=== PATIENT | female | born 1955 | race Caucasian/White ===

== ENCOUNTER → 2016-12-13 | Outpatient (CLI) | payer BC ==
--- NOTE | 2016-12-13 11:40 | USB ---
Reason for exam: additional evaluation requested from abnormal screening. History: Patient is postmenopausal. Family history of breast cancer in aunt. Benign US biopsy breast VAD RT of the right breast, May 10, 2016. Took estrogen for 10 years. Physical Findings: Nurse did not find any significant physical abnormalities on exam. US Breast RT Right breast ultrasound includes all four quadrants, the retroareolar region and axilla. Finding demonstrate a 0.3 x 0.3 x 0.2cm oval, cystic lesion at 4 o'clock, and a 0.3 x 0.5 x 0.2cm oval, cystic lesion at 7 o'clock. These results were verbally communicated with the patient and result sheet given to the patient on 12/13/16. ASSESSMENT: Benign, BI-RAD 2 RECOMMENDATION: Routine screening mammogram of both breasts in 6 months. Manage patient on a clinical basis. Back on schedule.
== END | disposition home or self-care (01) ==
LOC: RADUSWWP 09:31
PROVIDERS: ATTEND Family Medicine
DX: R92.8 Other abnormal and inconclusive findings on diagnostic imaging of breast (principal)

== ENCOUNTER → 2017-08-01 | Outpatient (CLI) | payer BC ==
--- NOTE | 2017-08-03 11:28 | MM ---
Reason for exam: screening (asymptomatic). Last mammogram was performed 1 year and 3 months ago. History: Patient is postmenopausal. Family history of breast cancer in aunt. Benign US biopsy breast VAD RT of the right breast, May 10, 2016. Took estrogen for 10 years. Physical Findings: A clinical breast exam by your physician is recommended on an annual basis and results should be correlated with mammographic findings. MG Screening Mammo w CAD Bilateral CC and MLO view(s) were taken. Prior study comparison: May 10, 2016, right breast MG diagnostic mammo RT wo CAD. January 26, 2016, bilateral MG 3d diag mammo w/cad [facility]. March 05, 2015, bilateral MG screening mammo w CAD. December 16, 2012, bilateral digital screening mammo w/CAD. Previous mammotome biopsy in the right breast. There is chronic nodularity in the right breast. No significant changes when compared with prior studies. ASSESSMENT: Negative, BI-RAD 1 RECOMMENDATION: Routine screening mammogram of both breasts in 1 year.
== END | disposition home or self-care (01) ==
LOC: RADMAMWWP 09:16
PROVIDERS: ATTEND Family Medicine
DX: Z12.31 Encounter for screening mammogram for malignant neoplasm of breast (principal)

== ENCOUNTER → 2017-12-08 | Outpatient (CLI) | payer BC ==
[2017-12-08 10:19] LABS: ALT 38 U/L (9-52); AST 29 U/L (14-36); Albumin 4.4 g/dL (3.5-5.0); Alkaline Phosphatase 66 U/L (38-126); Anion Gap 13 mmol/L; Blood Urea Nitrogen 15 mg/dL (7-17); Calcium 9.3 mg/dL (8.4-10.2); Carbon Dioxide 28 mmol/L (22-30); Chloride 104 mmol/L (98-107); Cholesterol 148 mg/dL (<200); Glucose 89 mg/dL (74-99); HDL Cholesterol 48 mg/dL (40-60); LDL Cholesterol,Calculated 79 mg/dL (0-99); Potassium 4.8 mmol/L (3.5-5.1); Sodium 145 mmol/L (137-145); Total Bilirubin 0.5 mg/dL (0.2-1.3); Total Protein 6.8 g/dL (6.3-8.2); Triglycerides 104 mg/dL (<150)
== END | disposition home or self-care (01) ==
LOC: LABWHC1 09:19
PROVIDERS: ATTEND Internal Medicine Clinical Cardiac Electrophysiology
DX: I25.10 Atherosclerotic heart disease of native coronary artery without angina pectoris (principal); I21.9 Acute myocardial infarction, unspecified; E78.01 Familial hypercholesterolemia
CPT/HCPCS: 36415; 80053; 80061

== ENCOUNTER 2018-01-04 00:22 | Observation (INO) | payer BC ==
[2018-01-04 01:17] LABS: Basophils % (A) 0 %; Eosinophils # (A) 0.1 k/uL (0-0.7); Eosinophils % (A) 2 %; HCT 42.3 % (34.0-46.0); HGB 14.3 gm/dL (11.4-16.0); Lymphocytes # (A) 1.6 k/uL (1.0-4.8); Lymphocytes % (A) 33 %; MCH 30.5 pg (25.0-35.0); MCHC 33.8 g/dL (31.0-37.0); MCV 90.1 fL (80.0-100.0); Mean Platelet Volume 6.4; Monocytes # (A) 0.3 k/uL (0-1.0); Monocytes % (A) 7 %; Neutrophils # (A) 2.8 k/uL (1.3-7.7); Neutrophils % (A) 57 %; Platelet Count 225 k/uL (150-450); RBC 4.69 m/uL (3.80-5.40); RDW 13.1 % (11.5-15.5)
[2018-01-04 01:20] LABS: ALT 31 U/L (9-52); AST 34 U/L (14-36); Albumin 4.2 g/dL (3.5-5.0); Alkaline Phosphatase 53 U/L (38-126); Amylase 89 U/L (30-110); Anion Gap 13 mmol/L; Blood Urea Nitrogen 19 mg/dL (7-17); Calcium 9.4 mg/dL (8.4-10.2); Carbon Dioxide 26 mmol/L (22-30); Chloride 105 mmol/L (98-107); Glucose 88 mg/dL (74-99); Lipase 76 U/L (23-300); Magnesium 2.4 mg/dL (1.6-2.3); Potassium 4.2 mmol/L (3.5-5.1); Sodium 144 mmol/L (137-145); Total Bilirubin 0.4 mg/dL (0.2-1.3); Total Protein 6.8 g/dL (6.3-8.2)
[2018-01-04 01:28] LABS: Creatine Kinase 59 U/L (30-135)
[2018-01-04 01:38] LABS: D-Dimer <0.17 mg/L FEU (<0.60); Partial Thromboplastin Time 24.9 sec (22.0-30.0); Prothrombin Time 10.2 sec (9.0-12.0)
[2018-01-04 01:40] LABS: Creatine Kinase MB 0.5 ng/mL (0.0-2.4); Troponin I <0.012 ng/mL (0.000-0.034)
--- NOTE | 2018-01-04 01:46 | XR ---
EXAMINATION TYPE: XR chest 2V DATE OF EXAM: 01/04/2018 COMPARISON: NONE HISTORY: Chest pain TECHNIQUE: Frontal and lateral views of the chest are obtained. FINDINGS: Heart and mediastinum are normal. There are small linear density in the right midlung. The other lung lucia are clear. There is no heart failure. There are chest leads. Bony thorax is intact . IMPRESSION: Subsegmental atelectasis in the right midlung. Normal heart.
[2018-01-04] MEDS ORDERED: ACETAMINOPHEN TAB 500 MG TAB PO STA (02:55)
--- NOTE | 2018-01-04 03:14 | ED ---
Chest Pain HPI - General Chief Complaint: Chest Pain Stated Complaint: Chest pain Time Seen by Provider: 01/04/18 00:33 Source: patient, family, EMS Mode of arrival: EMS Limitations: no limitations - History of Present Illness Initial Comments: 62 years old female comes in with the dizziness started about 11 PM she is nauseous now she is complaining about the chest pain then goes towards her back blood pressure was quite elevated at 1. 194/83 she said she is a candidate for defibrillator insertion. She said she had a chest pain and now chest pain is gone no shortness of breath no pleuritic component to the chest pain does not hurt worse with a deep breaths, dizziness is resolved as well she does have a history of heart disease she had a stent in place now she had a cardiac cath in September and she is on Plavix right now. Denies any headaches no neck stiffness chest pain has resolved now no abdominal pain no frequency urgency dysuria - Related Data Home Medications Medication Instructions Recorded Confirmed Aspirin 81 mg PO DAILY 07/10/16 07/10/16 Levothyroxine Sodium [Synthroid] 100 mcg PO DAILY 07/10/16 07/10/16 Losartan [Cozaar] 50 mg PO HS 07/10/16 07/10/16 Metoprolol Succinate [Toprol XL] 25 mg PO DAILY 07/10/16 07/10/16 Multivit with Calcium,Iron,Min 1 each PO DAILY 07/10/16 07/10/16 [Women's Daily Multivitamin] Omeprazole [PriLOSEC] 20 mg PO AC-BRKFST 07/10/16 07/10/16 amLODIPine [Norvasc] 10 mg PO HS 07/10/16 07/10/16 Previous Rx's Medication Instructions Recorded HYDROcodone/APAP 5-325MG [Che[place] 1 tab PO Q6HR PRN #18 tab 07/11/16 5-325] Allergies Allergy/AdvReac Type Severity Reaction Status Date / Time Sulfa (Sulfonamide Allergy Rash/Hives Verified 01/04/18 00:40 Antibiotics) Review of Systems ROS Statement: Those systems with pertinent positive or pertinent negative responses have been documented in the HPI. ROS Other: All systems not noted in ROS Statement are negative. EKG Findings - EKG Comments: EKG Findings:: EKG is normal sinus rhythm ventricular rate is 80 VA interval is 150 QRS duration is 86 QT/QTc is 4/475 review of this EKG reveals T-wave inversion in V2 V3 V4 V5 and V6 unfortunately have no old EKG to compare with. Considering acute EKG changes Past Medical History Past Medical History: GERD/Reflux, Hyperlipidemia, Hypertension, Osteoarthritis (OA), Thyroid Disorder History of Any Multi-Drug Resistant Organisms: None Reported Past Surgical History: Section, Hysterectomy, Tubal Ligation Additional Past Surgical History / Comment(s): attempted laparoscopic seven. in 2015 @[facility] Past Anesthesia/Blood Transfusion Reactions: Previous Problems w/ Anesthesia Additional Past Anesthesia/Blood Transfusion Reaction / Comment(s): some kind of complication w/attempted lap. seven, not sure if was anethesia or not-BP plummeted after start of procedure-was told could be respiratory although saw Pina who didn't think so, never had any anesthesia issues w/any other surg in past Past Psychological History: No Psychological Hx Reported Smoking Status: Former smoker Past Alcohol Use History: None Reported Past Drug Use History: None Reported - Past Family History Mother Family Medical History: Cancer Father Family Medical History: Cancer General Exam - General Exam Comments Initial Comments: General: The patient is awake and alert, in no distress, and does not appear acutely ill. Skin: Skin is warm and dry and no rashes or lesions are noted. Eye: Pupils are equal, round and reactive to light, extra-ocular movements are intact; there is normal conjunctiva bilaterally. Ears, nose, mouth and throat: There are moist mucous membranes and no oral lesions. Neck: The neck is supple, there is no tenderness or JVD. Cardiovascular: There is a regular rate and rhythm. No murmur, rub or gallop is appreciated. Respiratory: To auscultation bilateral, no wheezing no rhonchi no distress respiratory sanders noticed Gastrointestinal: Soft, non-distended, non-tender abdomen without masses or organomegaly noted. There is no rebound or guarding present. Bowel sounds are unremarkable. Back: There is no tenderness to palpation in the midline. There is no obvious deformity. Musculoskeletal: Normal ROM, no tenderness, There is no pedal edema. There is no calf tenderness or swelling. No cords were appreciated. Neurological: CN II-XII intact, Cranial nerves III through XII are intact. There are no obvious motor or sensory deficits. Coordination appears grossly intact. Speech is normal. Psychiatric: Cooperative, appropriate mood & affect, normal judgment. Limitations: no limitations Course Vital Signs 01/04/18 01/04/18 01/04/18 00:34 00:52 00:53 Temperature 97.7 F Pulse Rate 69 71 Pulse Rate [ 79 Right] Respiratory 17 16 Rate Blood Pressure 194/83 194/83 O2 Sat by Pulse 97 95 Oximetry 01/04/18 01/04/18 01/04/18 01:12 01:59 02:52 Temperature 97.4 F L Pulse Rate 66 66 76 Pulse Rate [ Right] Respiratory 18 16 18 Rate Blood Pressure 179/79 179/79 173/76 O2 Sat by Pulse 97 98 97 Oximetry Plan reassessment noticed the d-dimer is normal troponin is unremarkable chest x -ray is normal so is the troponin EKG has some changes in about 5 leads there are symmetrical T-wave inversions considering that she is currently hospitalized she'll be admitted to Disposition Clinical Impression: Chest pain Disposition: ADMITTED IP TO THIS HOSP Condition: Good Referrals: Xochilt Coker MD [Primary Care Provider] - 1-2 days
[2018-01-04] MEDS ORDERED: MORPHINE SULFATE 2 MG/ML SYRINGE IV PRN (03:18)
[2018-01-04] MEDS ORDERED: HYDROcodone/APAP 5-325MG 1 EACH TAB PO PRN (03:21)
[2018-01-04 04:03] VITALS: BMI 23.0
[2018-01-04] MEDS ORDERED: NITROGLYCERIN OINT 1 INCH/GM PACKET TOPICAL SCH (06:00)
[2018-01-04] MEDS ORDERED: LEVOTHYROXINE 100 MCG TAB PO SCH (06:30)
--- NOTE | 2018-01-04 07:17 | P.CRDCN ---
History of Present Illness Consult reason: chest pain History of present illness: 62-year-old female with history of hypertension who has seen in the office Presenting with dizziness while in bed, no loss of consciousness Later chest discomfort which went through to her back Nausea EKG shows inverted T waves in the precordial leads Chest x-ray showed normal cardiac silhouette and mediastinum D-dimer is normal First cardiac enzyme is normal Heart sounds are normal She is hypertensive She is on Coreg and lisinopril Medication list in the EMR record is inaccurate Suggest 3 serial cardiac enzymes Repeat ECG Records from the office including stress test report If normal consider CT of the chest with contrast to evaluate the aorta given her history of hypertension and her presenting symptoms Spoke to the nurse and started her on carvedilol and lisinopril 20 mg by mouth daily See full dictation by nurse practitioner Past Medical History Past Medical History: GERD/Reflux, Hyperlipidemia, Hypertension, Osteoarthritis (OA), Thyroid Disorder History of Any Multi-Drug Resistant Organisms: None Reported Past Surgical History: Section, Heart Catheterization With Stent, Hysterectomy, Tubal Ligation Additional Past Surgical History / Comment(s): attempted laparoscopic seven. in 2015 @[facility], heart cath with stent sep 10 Past Anesthesia/Blood Transfusion Reactions: Previous Problems w/ Anesthesia Additional Past Anesthesia/Blood Transfusion Reaction / Comment(s): some kind of complication w/attempted lap. seven, not sure if was anethesia or not-BP plummeted after start of procedure-was told could be respiratory although saw Pina who didn't think so, never had any anesthesia issues w/any other surg in past Date of Last Stent Placement:: september 10, 2017 Past Psychological History: No Psychological Hx Reported Smoking Status: Former smoker Past Alcohol Use History: None Reported Additional Past Alcohol Use History / Comment(s): smoked for 5-6 yrs in teens & early 20's Past Drug Use History: None Reported - Past Family History Mother Family Medical History: Cancer Father Family Medical History: Cancer Medications and Allergies Home Medications Medication Instructions Recorded Confirmed Type Aspirin 81 mg PO DAILY 07/10/16 01/04/18 History Levothyroxine Sodium [Synthroid] 75 mcg PO DAILY 07/10/16 01/04/18 History Losartan [Cozaar] 50 mg PO HS 07/10/16 07/10/16 History Metoprolol Succinate [Toprol XL] 25 mg PO DAILY 07/10/16 07/10/16 History Multivit with Calcium,Iron,Min 1 each PO DAILY 07/10/16 07/10/16 History [Women's Daily Multivitamin] Omeprazole [PriLOSEC] 20 mg PO AC-BRKFST 07/10/16 01/04/18 History amLODIPine [Norvasc] 10 mg PO HS 07/10/16 07/10/16 History HYDROcodone/APAP 5-325MG [Pione[place] 1 tab PO Q6HR PRN #18 tab 07/11/16 Rx 5-325] Atorvastatin [Lipitor] 01/04/18 History Atorvastatin [Lipitor] 10 mg PO HS 01/04/18 01/04/18 History Carvedilol [Carvedilol] 25 mg PO BID 01/04/18 01/04/18 History Clopidogrel [Plavix] 75 mg PO DAILY 01/04/18 01/04/18 History Ezetimibe [Zetia] 10 mg PO DAILY 01/04/18 01/04/18 History Lisinopril [Zestril] 20 mg PO BID 01/04/18 01/04/18 History Allergies Allergy/AdvReac Type Severity Reaction Status Date / Time Sulfa (Sulfonamide Allergy Rash/Hives Verified 01/04/18 00:40 Antibiotics) Physical Exam Vitals: Vital Signs Temp Pulse Pulse Resp BP BP Pulse Ox 01/04/18 04:00 61 16 179/89 100 01/04/18 03:28 98.0 F 58 L 18 178/85 98 01/04/18 02:52 76 18 173/76 97 01/04/18 01:59 97.4 F L 66 16 179/79 98 01/04/18 01:12 66 18 179/79 97 01/04/18 00:53 79 01/04/18 00:52 71 16 194/83 95 01/04/18 00:34 97.7 F 69 17 194/83 97 Intake and Output 01/03/18 01/04/18 01/04/18 22:59 06:59 14:59 Intake Total 100 Balance 100 Intake: Oral 100 Other: Voiding Method Toilet # Voids 2 Weight 53.524 kg Results 01/04/18 00:40 01/04/18 00:40 Cardiac Enzymes 01/04/18 01/04/18 Range/Units 00:40 00:40 AST 34 (14-36) U/L CK-MB (CK-2) 0.5 (0.0-2.4) ng/mL Troponin I <0.012 (0.000-0.034) ng/mL Coagulation 01/04/18 Range/Units 00:40 PT 10.2 (9.0-12.0) sec APTT 24.9 (22.0-30.0) sec CBC 01/04/18 Range/Units 00:40 WBC 5.0 (3.8-10.6) k/uL RBC 4.69 (3.80-5.40) m/uL Hgb 14.3 (11.4-16.0) gm/dL Hct 42.3 (34.0-46.0) % Plt Count 225 (150-450) k/uL Comprehensive Metabolic Panel 01/04/18 Range/Units 00:40 Sodium 144 (137-145) mmol/L Potassium 4.2 (3.5-5.1) mmol/L Chloride 105 (98-107) mmol/L Carbon Dioxide 26 (22-30) mmol/L BUN 19 H (7-17) mg/dL Creatinine 0.80 (0.52-1.04) mg/dL Glucose 88 (74-99) mg/dL Calcium 9.4 (8.4-10.2) mg/dL AST 34 (14-36) U/L ALT 31 (9-52) U/L Alkaline Phosphatase 53 (38-126) U/L Total Protein 6.8 (6.3-8.2) g/dL Albumin 4.2 (3.5-5.0) g/dL Current Medications Generic Name Dose Route Start Last Admin Trade Name Freq PRN Reason Stop Dose Admin Hydrocodone Bitart/Acetaminophen 1 each 01/04/18 03:21 Pioneer 5-325 PO Q6HR PRN Pain Aspirin 325 mg 01/05/18 09:00 Aspirin PO DAILY [facility] Levothyroxine Sodium 75 mcg 01/04/18 06:30 Synthroid PO 0630 [facility] Metoprolol Succinate 25 mg 01/04/18 09:00 Toprol Xl PO DAILY [facility] Morphine Sulfate 4 mg 01/04/18 03:18 Morphine Sulfate (Inj) IV Q5M PRN Chest Pain Multivitamins 1 each 01/04/18 09:00 Theragran PO DAILY DANNIELLE Pantoprazole Sodium 40 mg 01/04/18 07:30 Protonix PO AC-BRKFST DANNIELLE Intake and Output 01/03/18 01/04/18 01/04/18 22:59 06:59 14:59 Intake Total 100 Balance 100 Intake: Oral 100 Other: Voiding Method Toilet # Voids 2 Weight 53.524 kg 01/04/18 00:40 01/04/18 00:40
[2018-01-04] MEDS: CARVEDILOL 12.5 MG TAB PO SCH ×2 (08:39→17:36)
[2018-01-04] MEDS: LEVOTHYROXINE 75 MCG TAB PO SCH (08:39)
[2018-01-04] MEDS: LISINOPRIL 20 MG TAB PO SCH (08:39)
[2018-01-04] MEDS ORDERED: MULTIVITAMINS, THERA 1 EACH TAB PO SCH (09:00)
[2018-01-04] MEDS ORDERED: METOPROLOL SUCCINATE (ER) 25 MG TAB.ER.24H PO SCH (09:00)
[2018-01-04] MEDS ORDERED: RX INFO: IV CONTRAST WAS GIVEN 1 EACH MISC MISCELLANE PRN (09:14)
[2018-01-04 10:07] LABS: Creatine Kinase 53 U/L (30-135)
[2018-01-04 10:19] LABS: Creatine Kinase MB 0.5 ng/mL (0.0-2.4); Troponin I <0.012 ng/mL (0.000-0.034)
[2018-01-04] MEDS: PANTOPRAZOLE 40 MG TABLET PO SCH (10:40)
--- NOTE | 2018-01-04 10:46 | CT ---
EXAMINATION TYPE: CT chest w con DATE OF EXAM: 01/04/2018 COMPARISON: NONE HISTORY: Chest pain with shortness of breath CT DLP: 129.4 mGycm. Automated Exposure Control for Dose Reduction was Utilized. TECHNIQUE: CT scan of the thorax is performed following with IV Contrast, patient injected with 100 mL of Isovue 300. FINDINGS: LUNGS: Left lower lobe pulmonary nodule is seen anterolaterally on series 4 image 41 measuring 5 mm. This appears to retract the interlobar fissure and could relate to scarring or early neoplasm and the refore surveillance is recommended. This is too small for percutaneous biopsy. Multifocal subcentimet er dependent focal pleural thickening and atelectasis are noted with pleural thickening also visualiz ed on coronal series 6 image 65 through 67 and lung windows. The lungs are grossly clear, there is no concerning parenchymal mass or nodule identified. There is no pleural effusion or pneumothorax see n. The tracheobronchial tree is patent. MEDIASTINUM: There are no greater than 1 cm hilar or mediastinal lymph nodes. No pericardial effusi on is seen. OTHER: There is a rounded morphology of an 8 mm right axillary lymph node on series 3 image 16 there is also slightly hyperemic in comparison to the left. These could be inflammatory reactive although c haracterization with ultrasound to evaluate for cortical thickening or fatty hilum replacement is rec ommended. Gallbladder is surgically absent. There is postsurgical dilatation of the extrahepatic bile duct. Verito y small hiatal hernia is present. IMPRESSION: 1. No focal consolidation, pleural effusion or pneumothorax. No thoracic aortic aneurysm. No cardiome gerald. 2. 5 mm left lower lobe pulmonary nodule and multifocal dependent subcentimeter pleural thickening. F ollow-up for this nodule is recommended in 6 months given its spiculated morphology. 3. Right axillary rounded prominent lymph node for which further evaluation with axillary ultrasound is recommended to ensure no fatty hilum replacement or cortical thickening.
--- NOTE | 2018-01-04 10:47 | ECHOF ---
Referral Reason:cp MEASUREMENTS -------- HEIGHT: 152.4 cm WEIGHT: 53.5 kg BP: 179/89 RVIDd: 2.7 cm (< 3.3) IVSd: 1.1 cm (0.6 - 1.1) LVIDd: 4.5 cm (3.9 - 5.3) LVPWd: 1.1 cm (0.6 - 1.1) IVSs: 1.5 cm LVIDs: 3.0 cm LVPWs: 1.6 cm LA Diam: 3.6 cm (2.7 - 3.8) LAESV Index (A-L): 40.67 ml/m Ao Diam: 2.7 cm (2.0 - 3.7) AV Cusp: 1.7 cm (1.5 - 2.6) MV EXCURSION: 13.059 mm (> 18.000) MV EF SLOPE: 55 mm/s (70 - 150) EPSS: 1.3 cm MV E Raad: 1.25 m/s MV DecT: 150 ms MV A Raad: 0.72 m/s MV E/A Ratio: 1.74 RAP: 5.00 mmHg RVSP: 23.28 mmHg FINDINGS -------- Sinus rhythm. This was a technically adequate study. The left ventricular size is normal. There is borderline concentric left ventricular hypertrophy. Overall left ventricular systolic function is moderate-severely impaired with, an EF between 30 - 35 %. Apical lateral LV wall motion is hypokinetic. Apical inferior LV wall motion is hypokinetic. Apical septum LV wall motion is hypokinetic. The right ventricle is normal in size. LA is severely dilated >40 ml/m2 The right atrium is normal in size. The aortic valve is trileaflet and appears structurally normal. The mitral valve leaflets are mildly thickened. Mild mitral annular calcification present. Mild m itral regurgitation is present. Mild tricuspid regurgitation present. Right ventricular systolic pressure is normal at < 35 mmHg. Trace/mild (physiologic) pulmonic regurgitation. The aortic root size is normal. Normal inferior vena cava with normal inspiratory collapse consistent with estimated right atrial pre ssure of 5 mmHg. There is no pericardial effusion. CONCLUSIONS -------- 1. Sinus rhythm. 2. This was a technically adequate study. 3. The left ventricular size is normal. 4. There is borderline concentric left ventricular hypertrophy. 5. Overall left ventricular systolic function is moderate-severely impaired with, an EF between 30 - 35 %. 6. Apical lateral LV wall motion is hypokinetic. 7. Apical inferior LV wall motion is hypokinetic. 8. Apical septum LV wall motion is hypokinetic. 9. The right ventricle is normal in size. 10. LA is severely dilated >40 ml/m2 11. The right atrium is normal in size. 12. The aortic valve is trileaflet and appears structurally normal. 13. The mitral valve leaflets are mildly thickened. 14. Mild mitral annular calcification present. 15. Mild mitral regurgitation is present. 16. Mild tricuspid regurgitation present. 17. Right ventricular systolic pressure is normal at < 35 mmHg. 18. Trace/mild (physiologic) pulmonic regurgitation. 19. The aortic root size is normal. 20. Normal inferior vena cava with normal inspiratory collapse consistent with estimated right atrial pressure of 5 mmHg. 21. There is no pericardial effusion. MAINFRAME SYSTEMS ENGINEER: Genevieve Lepe RDCS
[2018-01-04] MEDS: SPIRONOLACTONE 25 MG TAB PO SCH (11:13)
--- NOTE | 2018-01-04 13:30 | P.CRDCN ---
History of Present Illness History of present illness: Mrs. Pedro is a pleasant 62-year-old Cacasian female past medical history significant for dyslipidemia, hypertension, hypothyroidism, coronary artery disease s/p recent angioplasty 09/2017 in [place] and ischemic cardiomyopathy. She follows with Dr. Tyler in the office. Her heart catheterization revealed 100% occluded mid LAD s/p successful angioplasty, second diagonal completely occluded, mild irregularities in the obtuse marginal, luminal irregularities of the RCA with LV function of 50-55% at that time with mild anterior apical inferior apical hypokinesia. Repeat echocardiogram performed in the office December 11 reveals moderately decreased systolic function with ejection fraction 30-35%, mild concentric hypertrophy, grade 1 diastolic dysfunction, severe hypokinesia of the mid anterior septum, apical inferior, apical septum and apex. There is also moderate mitral regurgitation present. She underwent nuclear Cardiolite stress testing in the office 11/06/2017 which revealed a fixed perfusion defect involving the anterior septal wall in the LAD distribution with no reversible perfusion defects noted. Plan for her is ICD placement for ischemic cardiomyopathy within the next 4 weeks. We have been asked to see her in consultation for dizziness. She states she was laying in bed when she became acutely lightheaded and nauseated. She then started to develop pain in the mid- sternal region that radiated through to her back. Blood pressure on admission elevated 194/83. Chest pain has resolved since admission as well as dizziness and nausea. EKG reveals sinus mechanism with T-wave inversion in precordial leads. Chest xray negative for an acute cardiopulmonary process. Laboratory data reviewed, hemoglobin 14.3, platelets 225, negative d-dimer, sodium 144, potassium 4.2, creatinine 0.8, magnesium 2.4, troponin neagive x2, proBNP 772. Current home cardiac mediations include lisinopril 20 mg BID, plavix 75 mg daily , carvedilool 25 mg BID, aspirin 81 mg daily, atrovastatin 10 mg daily and zetia 10 mg daily. Review of Systems At the time of exam: CONSTITUTIONAL: Denies fever. Denies chills. EYES: Denies blurred vision. Denies vision changes. Denies eye pain. EARS, NOSE, MOUTH & THROAT: Denies headache. Denies sore throat. Denies ear pain. CARDIOVASCULAR: Denies chest pain. Denies shortness of breath. Denies orthopnea. Denies PND. Denies palpitations. RESPIRATORY: Denies cough. GASTROINTESTINAL: Denies abdominal pain. Denies diarrhea. Denies constipation. Denies nausea. Denies vomiting. MUSCULOSKELETAL: Denies myalgias. INTEGUMENTARY: Denies pruitis. Denies rash. NEUROLOGIC: Denies numbness. Denies tingling. Denies weakness. PSYCHIATRIC: Denies anxiety. Denies depression. ENDOCRINE: Denies fatigue. Denies weight change. Denies polydipsia. Denies polyurina. GENITOURINARY: Denies burning, hematuria or urgency with micturation. HEMATOLOGIC: Denies history of anemia. Denies bleeding. Past Medical History Past Medical History: GERD/Reflux, Hyperlipidemia, Hypertension, Osteoarthritis (OA), Thyroid Disorder History of Any Multi-Drug Resistant Organisms: None Reported Past Surgical History: Section, Heart Catheterization With Stent, Hysterectomy, Tubal Ligation Additional Past Surgical History / Comment(s): attempted laparoscopic seven. in 2015 @[facility], heart cath with stent sep 10 Past Anesthesia/Blood Transfusion Reactions: Previous Problems w/ Anesthesia Additional Past Anesthesia/Blood Transfusion Reaction / Comment(s): some kind of complication w/attempted lap. seven, not sure if was anethesia or not-BP plummeted after start of procedure-was told could be respiratory although saw Pina who didn't think so, never had any anesthesia issues w/any other surg in past Date of Last Stent Placement:: september 10, 2017 Past Psychological History: No Psychological Hx Reported Smoking Status: Former smoker Past Alcohol Use History: None Reported Additional Past Alcohol Use History / Comment(s): smoked for 5-6 yrs in teens & early 20's Past Drug Use History: None Reported - Past Family History Mother Family Medical History: Cancer Father Family Medical History: Cancer Medications and Allergies Home Medications Medication Instructions Recorded Confirmed Type Aspirin 81 mg PO DAILY 07/10/16 01/04/18 History Omeprazole [PriLOSEC] 20 mg PO AC-BRKFST 07/10/16 01/04/18 History Atorvastatin [Lipitor] 10 mg PO HS 01/04/18 01/04/18 History Carvedilol [Carvedilol] 25 mg PO BID 01/04/18 01/04/18 History Clopidogrel [Plavix] 75 mg PO DAILY 01/04/18 01/04/18 History Ezetimibe [Zetia] 10 mg PO DAILY 01/04/18 01/04/18 History Levothyroxine Sodium [Synthroid] 75 mcg PO DAILY 01/04/18 01/04/18 History Lisinopril [Zestril] 20 mg PO BID 01/04/18 01/04/18 History Allergies Allergy/AdvReac Type Severity Reaction Status Date / Time Sulfa (Sulfonamide Allergy Rash/Hives Verified 01/04/18 08:54 Antibiotics) Physical Exam Vitals: Vital Signs Temp Pulse Pulse Pulse Resp BP BP 01/04/18 08:00 97.6 F 74 61 16 195/78 01/04/18 04:00 61 16 179/89 01/04/18 03:28 98.0 F 58 L 18 178/85 01/04/18 02:52 76 18 173/76 01/04/18 01:59 97.4 F L 66 16 179/79 01/04/18 01:12 66 18 179/79 01/04/18 00:53 79 01/04/18 00:52 71 16 194/83 01/04/18 00:34 97.7 F 69 17 194/83 Pulse Ox 01/04/18 08:00 99 01/04/18 04:00 100 01/04/18 03:28 98 01/04/18 02:52 97 01/04/18 01:59 98 01/04/18 01:12 97 01/04/18 00:53 01/04/18 00:52 95 01/04/18 00:34 97 Intake and Output 01/03/18 01/04/18 01/04/18 22:59 06:59 14:59 Intake Total 100 Balance 100 Intake: Oral 100 Other: Voiding Method Toilet Toilet # Voids 2 Weight 53.524 kg Blood pressure 150/77 heart rate 66 afebrile maintaining oxygen saturation on room air GENERAL: This is a 62-year-old female in no apparent distress at the time of my examination. HEENT: Head is atraumatic, normocephalic. Pupils are equal, round. Sclerae anicteric. Conjunctivae are clear. Mucous membranes of the mouth are moist. Neck is supple. There is no jugular venous distention. No carotid bruit is heard. LUNGS: Clear to auscultation no wheezes, rales or rhonchi. No chest wall tenderness is noted on palpation or with deep breathing. HEART: Regular rate and rhythm without murmurs, rubs or gallops. S1 and S2 heard. ABDOMEN: Soft, nontender. Bowel sounds are heard. No organomegaly noted. EXTREMITIES: No evidence of peripheral edema and no calf tenderness noted. VASCULAR: Radial and dorsalis pedis pulses palpated, no evidence of clubbing. NEUROLOGIC: Patient is awake, alert and oriented x3. Results 01/04/18 00:40 01/04/18 00:40 Cardiac Enzymes 01/04/18 01/04/18 Range/Units 00:40 00:40 AST 34 (14-36) U/L CK-MB (CK-2) 0.5 (0.0-2.4) ng/mL Troponin I <0.012 (0.000-0.034) ng/mL Coagulation 01/04/18 Range/Units 00:40 PT 10.2 (9.0-12.0) sec APTT 24.9 (22.0-30.0) sec CBC 01/04/18 Range/Units 00:40 WBC 5.0 (3.8-10.6) k/uL RBC 4.69 (3.80-5.40) m/uL Hgb 14.3 (11.4-16.0) gm/dL Hct 42.3 (34.0-46.0) % Plt Count 225 (150-450) k/uL Comprehensive Metabolic Panel 01/04/18 Range/Units 00:40 Sodium 144 (137-145) mmol/L Potassium 4.2 (3.5-5.1) mmol/L Chloride 105 (98-107) mmol/L Carbon Dioxide 26 (22-30) mmol/L BUN 19 H (7-17) mg/dL Creatinine 0.80 (0.52-1.04) mg/dL Glucose 88 (74-99) mg/dL Calcium 9.4 (8.4-10.2) mg/dL AST 34 (14-36) U/L ALT 31 (9-52) U/L Alkaline Phosphatase 53 (38-126) U/L Total Protein 6.8 (6.3-8.2) g/dL Albumin 4.2 (3.5-5.0) g/dL Current Medications Generic Name Dose Route Start Last Admin Trade Name Freq PRN Reason Stop Dose Admin Hydrocodone Bitart/Acetaminophen 1 each 01/04/18 03:21 Logan 5-325 PO Q6HR PRN Pain Aspirin 81 mg 01/05/18 09:00 Aspirin PO DAILY [facility] Carvedilol 25 mg 01/04/18 07:30 01/04/18 08:39 Coreg PO 25 mg BID-W/MEALS DANNIELLE Administration Levothyroxine Sodium 75 mcg 01/04/18 06:30 01/04/18 08:39 Synthroid PO 75 mcg 0630 DANNIELLE Administration Lisinopril 20 mg 01/04/18 09:00 01/04/18 08:39 Zestril PO 20 mg DAILY DANNIELLE Administration Miscellaneous Information 1 each 01/04/18 09:14 Rx Info: Iv Contrast Was Given MISCELLANE 01/06/18 09:15 DAILY PRN Per Protocol Morphine Sulfate 4 mg 01/04/18 03:18 Morphine Sulfate (Inj) IV Q5M PRN Chest Pain Pantoprazole Sodium 40 mg 01/04/18 07:30 Protonix PO AC-BRKFST [facility] Intake and Output 01/03/18 01/04/18 01/04/18 22:59 06:59 14:59 Intake Total 100 Balance 100 Intake: Oral 100 Other: Voiding Method Toilet Toilet # Voids 2 Weight 53.524 kg 01/04/18 00:40 01/04/18 00:40 Assessment and Plan Assessment: ASSESSMENT 1. Hypertensive urgency 2. Known history of coronary artery disease status post angioplasty 3. Ischemic cardiomyopathy, ejection fraction 30-35%. 4. Dyslipidemia 5. Gastroesophageal reflux disease 6. Hypothyroidism PLAN Continue to obtain serial cardiac enzymes to rule out an acute coronary event. Repeat EKG. Records from the office of been reviewed, recent nuclear stress test is negative for reversible cardiac ischemia. Obtain CT of the chest with contrast to evaluate the aorta. Add Aldactone 50 mg daily to her regimen. Repeat BMP in the morning. Thank you kindly for this consultation we'll continue to follow closely with this patient. Nurse Practitioner note has been reviewed, I agree with a documented findings and plan of care. Patient was seen and examined.
[2018-01-04 13:34] LABS: Creatine Kinase 57 U/L (30-135)
[2018-01-04 13:47] LABS: Creatine Kinase MB 0.5 ng/mL (0.0-2.4); Troponin I <0.012 ng/mL (0.000-0.034)
--- NOTE | 2018-01-04 16:16 | US ---
EXAMINATION TYPE: US axilla RT DATE OF EXAM: 01/04/2018 COMPARISON: CT chest earlier today CLINICAL HISTORY: right axillary lymph node noted in CT of chest . Right axillary lymph node visualiz ed on recent CT Lymph node right axilla appearing lobulated = 1.4 x 0.7 x 2.2cm scanning of right axilla shows benign appearing lymph nodes which correlate with recent CT they are s ubcentimeter on short axis with retention of normal fatty hilum. IMPRESSION: As above
--- NOTE | 2018-01-04 17:12 | P.HPIM ---
History of Present Illness Patient is a pleasant 62-year-old female came in with complaints of lightheadedness which is all at this point of time patient was also complaining of chest pressure-like sensation because of which cardiology valid the patient. Although patient has recent cardiac catheterization month of September 2017 and recent antiplastic after which patient underwent a stress test which was negative. Patient chest pain completely resolved patient denied any diaphoresis associated with that patient denied any pleuritic nature of chest pain patient denied any association with food. Her main complaint was dizziness and nausea which resolved at this point of time. Cardiology evaluated the patient patient and other significant concern is her blood pressure is highly elevated. Patient blood pressures come down now patient appears to have decreased ejection fraction of 30-35% discussion regarding AICD was done by cardiology. Cardiology added to potassium sparing diuretic and wanted to monitor 1 more night and not recommending any further intervention. If patient is chest pain-free without any recurrence of her symptoms, patient will be discharged tomorrow with aldactone Review of Systems REVIEW OF SYSTEMS: CONSTITUTIONAL: No fever, no malaise, no fatigue. HEENT: No recent visual problems or hearing problems. Denied any sore throat. CARDIOVASCULAR: No orthopnea, PND, no palpitations, no syncope. PULMONARY: No shortness of breath, no cough, no hemoptysis. GASTROINTESTINAL: No diarrhea, no nausea, no vomiting, no abdominal pain. Normoactive bowel sounds. NEUROLOGICAL: No headaches, no weakness, no numbness. HEMATOLOGICAL: Denies any bleeding or petechiae. GENITOURINARY: Denies any burning micturition, frequency, or urgency. MUSCULOSKELETAL/RHEUMATOLOGICAL: Denies any joint pain, swelling, or any muscle pain. ENDOCRINE: Denies any polyuria or polydipsia. The rest of the 14-point review of systems is negative. Past Medical History Past Medical History: GERD/Reflux, Hyperlipidemia, Hypertension, Osteoarthritis (OA), Thyroid Disorder History of Any Multi-Drug Resistant Organisms: None Reported Past Surgical History: Section, Heart Catheterization With Stent, Hysterectomy, Tubal Ligation Additional Past Surgical History / Comment(s): attempted laparoscopic seven. in 2015 @[facility], heart cath with stent sep 10 Past Anesthesia/Blood Transfusion Reactions: Previous Problems w/ Anesthesia Additional Past Anesthesia/Blood Transfusion Reaction / Comment(s): some kind of complication w/attempted lap. seven, not sure if was anethesia or not-BP plummeted after start of procedure-was told could be respiratory although saw Pina who didn't think so, never had any anesthesia issues w/any other surg in past Date of Last Stent Placement:: september 10, 2017 Past Psychological History: No Psychological Hx Reported Smoking Status: Former smoker Past Alcohol Use History: None Reported Additional Past Alcohol Use History / Comment(s): smoked for 5-6 yrs in teens & early 20's Past Drug Use History: None Reported - Past Family History Mother Family Medical History: Cancer Father Family Medical History: Cancer Medications and Allergies Home Medications Medication Instructions Recorded Confirmed Type Aspirin 81 mg PO DAILY 07/10/16 01/04/18 History Omeprazole [PriLOSEC] 20 mg PO AC-BRKFST 07/10/16 01/04/18 History Atorvastatin [Lipitor] 10 mg PO HS 01/04/18 01/04/18 History Carvedilol [Carvedilol] 25 mg PO BID 01/04/18 01/04/18 History Clopidogrel [Plavix] 75 mg PO DAILY 01/04/18 01/04/18 History Ezetimibe [Zetia] 10 mg PO DAILY 01/04/18 01/04/18 History Levothyroxine Sodium [Synthroid] 75 mcg PO DAILY 01/04/18 01/04/18 History Lisinopril [Zestril] 20 mg PO BID 01/04/18 01/04/18 History Allergies Allergy/AdvReac Type Severity Reaction Status Date / Time Sulfa (Sulfonamide Allergy Rash/Hives Verified 01/04/18 08:54 Antibiotics) Physical Exam Vitals: Vital Signs Temp Pulse Pulse Pulse Resp BP BP 01/04/18 16:00 98.9 F 65 16 01/04/18 12:00 97.8 F 66 16 150/77 01/04/18 08:00 97.6 F 74 61 16 195/78 01/04/18 04:00 61 16 179/89 01/04/18 03:28 98.0 F 58 L 18 178/85 01/04/18 02:52 76 18 173/76 01/04/18 01:59 97.4 F L 66 16 179/79 01/04/18 01:12 66 18 179/79 01/04/18 00:53 79 06/01/18 00:52 71 16 194/83 01/04/18 00:34 97.7 F 69 17 194/83 Pulse Ox 01/04/18 16:00 99 01/04/18 12:00 99 01/04/18 08:00 99 01/04/18 04:00 100 01/04/18 03:28 98 01/04/18 02:52 97 01/04/18 01:59 98 01/04/18 01:12 97 01/04/18 00:53 01/04/18 00:52 95 01/04/18 00:34 97 Intake and Output 01/04/18 01/04/18 01/04/18 06:59 14:59 22:59 Intake Total 100 Balance 100 Intake: Oral 100 Other: Voiding Method Toilet Toilet Toilet # Voids 2 3 Weight 53.524 kg PHYSICAL EXAMINATION: GENERAL: The patient is alert and oriented x3, not in any acute distress. Well developed, well nourished. HEENT: Pupils are round and equally reacting to light. EOMI. No scleral icterus. No conjunctival pallor. Normocephalic, atraumatic. No pharyngeal erythema. No thyromegaly. CARDIOVASCULAR: S1 and S2 present. No murmurs, rubs, or gallops. PULMONARY: Chest is clear to auscultation, no wheezing or crackles. ABDOMEN: Soft, nontender, nondistended, normoactive bowel sounds. No palpable organomegaly. MUSCULOSKELETAL: No joint swelling or deformity. EXTREMITIES: No cyanosis, clubbing, or pedal edema. NEUROLOGICAL: Gross neurological examination did not reveal any focal deficits. SKIN: No rashes. Results CBC & Chem 7: 01/04/18 00:40 01/04/18 00:40 Labs: Abnormal Lab Results - Last 24 Hours (Table) 01/04/18 Range/Units 00:40 BUN 19 H (7-17) mg/dL Magnesium 2.4 H (1.6-2.3) mg/dL Thrombosis Risk Factor Assmnt - Choose All That Apply Each Risk Factor Represents 2 Points: Age 61-74 years Thrombosis Risk Factor Assessment Total Risk Factor Score: 2 Thrombosis Risk Factor Assessment Level: Low Risk Assessment and Plan Plan: -Possible hypertensive urgency: Management as mentioned above -Chest pain rule out acute current syndromes further management as mentioned above and please refer to cardiology dictation for further details -Ischemic and DC with ejection fraction of 30-35% without any heart failure exacerbation patient is euvolemic further management as mentioned above Happened dyslipidemia -Hypothyroidism -Incidental finding of a pulmonary nodule which is 6 mm follow-up with pulmonary as an outpatient along with repeat CAT scan in about 3-6 months. -Gastroesophageal reflux disease -Incidental finding of right axillary lymphadenopathy probably reactive but the obtaining an ultrasound of that lymph node. -Hypothyroidism
[2018-01-04] MEDS ORDERED: hydrALAZINE HCL 20 MG/ML 1 ML VIAL IVP PRN (18:46)
[2018-01-04] MEDS ORDERED: CARVEDILOL 12.5 MG TAB PO STA (18:47)
[2018-01-04] MEDS: EZETIMIBE 10 MG TAB PO SCH (20:52)
[2018-01-04] MEDS: ASPIRIN 81 MG PO SCH (20:52)
[2018-01-04] MEDS ORDERED: amLODIPine 10 MG TAB PO SCH (21:00)
[2018-01-04] MEDS ORDERED: ATORVASTATIN 10 MG TAB PO SCH (21:00)
[2018-01-04] MEDS ORDERED: LOSARTAN 50 MG TAB PO SCH (21:00)
[2018-01-05 04:22] VITALS: RESP 16
[2018-01-05] MEDS: LEVOTHYROXINE 75 MCG TAB PO SCH (04:55)
[2018-01-05] MEDS ORDERED: CARVEDILOL 12.5 MG TAB PO SCH (07:30)
[2018-01-05 08:14] LABS: Potassium 4.7 mmol/L (3.5-5.1)
[2018-01-05] MEDS ORDERED: CLOPIDOGREL 75 MG TAB PO SCH (09:00)
[2018-01-05] MEDS ORDERED: ASPIRIN 81 MG PO SCH (09:00)
[2018-01-05] MEDS ORDERED: ASPIRIN 325 MG TAB PO SCH (09:00)
[2018-01-05] MEDS ORDERED: EZETIMIBE 10 MG TAB PO SCH (09:00)
[2018-01-05] MEDS: EZETIMIBE 10 MG TAB PO SCH (09:47)
[2018-01-05] MEDS: LISINOPRIL 20 MG TAB PO SCH (09:48)
[2018-01-05] MEDS: SPIRONOLACTONE 25 MG TAB PO SCH (09:49)
[2018-01-05] MEDS: PANTOPRAZOLE 40 MG TABLET PO SCH (09:49)
[2018-01-05] MEDS: ASPIRIN 81 MG PO SCH (09:51)
--- NOTE | 2018-01-05 10:29 | PN ---
PROGRESS NOTE This is a lady with ischemic cardiomyopathy, myocardial infarction in [place] a few months ago. She was seen by Dr. Tyler. A CT scan was ordered mainly to look at any aortic pathology. However, in the initial report there was no mention about aortic pathology. Patient since yesterday is asymptomatic. She is doing well. She has ischemic cardiomyopathy with ejection fraction of less than 35%. She was advised to have a follow-up visit with Dr. Tyler for possible ICD. Patient is also considering a second opinion. She is on appropriate medications and asymptomatic today. I called the radiologist personally to get the addendum note on the aortic pathology. If there is no evidence of any aneurysm dissection and if the aorta is of a normal size, she can be discharged with the understanding she should follow up with Dr. Tyler in 2 weeks or so and should continue the current medical regimen. Her vital signs are stable. Physical exam did not reveal any significant abnormalities. S1, S2 are heard normally. Lungs are clear. Abdomen and lower extremity exam otherwise was unchanged. Patient can be discharged today. MMODL / IJN: [id number] /
[2018-01-05 12:35] VITALS: BP 169/77; TEMP 97.5
[2018-01-05 13:07] VITALS: PULSE 67
--- NOTE | 2018-01-05 13:14 | P.DS ---
Providers Date of admission: 01/04/18 03:18 Attending physician: Gerhard Samuel Consults: 01/04/18 03:18 Consult Physician Urgent Consulting Provider: Sunitha Green Consult Reason/Comments: Chest pain Do you want consulting provider notified?: Yes Primary care physician: Xochilt Murrietarecht [facility] Course: Patient overnight did well no episodes of dizziness or lightheadedness or chest pain. Patient is cleared from cardiology perspective. Patient will be discharged today to follow up with the large as an outpatient for her pulmonary nodule. Her axillary node appears to be benign on the ultrasound. Please refer to my dictation of H&P for further details of hospitalization course and chronic medical problems and the treatment. PHYSICAL EXAMINATION: GENERAL: The patient is alert and oriented x3, not in any acute distress. Well developed, well nourished. HEENT: Pupils are round and equally reacting to light. EOMI. No scleral icterus. No conjunctival pallor. Normocephalic, atraumatic. No pharyngeal erythema. No thyromegaly. CARDIOVASCULAR: S1 and S2 present. No murmurs, rubs, or gallops. PULMONARY: Chest is clear to auscultation, no wheezing or crackles. ABDOMEN: Soft, nontender, nondistended, normoactive bowel sounds. No palpable organomegaly. MUSCULOSKELETAL: No joint swelling or deformity. EXTREMITIES: No cyanosis, clubbing, or pedal edema. NEUROLOGICAL: Gross neurological examination did not reveal any focal deficits. SKIN: No rashes. Patient Condition at Discharge: Good Plan - Discharge Summary Discharge Rx Participant: No New Discharge Prescriptions: New Spironolactone [Aldactone] 50 mg PO DAILY #30 tab Continue Omeprazole [PriLOSEC] 20 mg PO AC-BRKFST Aspirin 81 mg PO DAILY Carvedilol 25 mg PO BID Atorvastatin [Lipitor] 10 mg PO HS Clopidogrel [Plavix] 75 mg PO DAILY Ezetimibe [Zetia] 10 mg PO DAILY Levothyroxine Sodium [Synthroid] 75 mcg PO DAILY Changed Lisinopril [Zestril] 20 mg PO DAILY #0 Discharge Medication List Aspirin 81 mg PO DAILY 07/10/16 [History] Omeprazole [PriLOSEC] 20 mg PO AC-BRKFST 07/10/16 [History] Atorvastatin [Lipitor] 10 mg PO HS 01/04/18 [History] Carvedilol 25 mg PO BID 01/04/18 [History] Clopidogrel [Plavix] 75 mg PO DAILY 01/04/18 [History] Ezetimibe [Zetia] 10 mg PO DAILY 01/04/18 [History] Levothyroxine Sodium [Synthroid] 75 mcg PO DAILY 01/04/18 [History] Lisinopril [Zestril] 20 mg PO DAILY #0 01/05/18 [Rx] Spironolactone [Aldactone] 50 mg PO DAILY #30 tab 01/05/18 [Rx] Follow up Appointment(s)/Referral(s): Hany Tyler MD [STAFF PHYSICIAN] - 02/01/18 5:45 pm Xochilt Coker MD [Primary Care Provider] - 3 Days (Office is closed,please call for appointment date and time) Keeley Fontana MD [STAFF PHYSICIAN] - 4 Weeks (Office is closed,please call for appointment date and time) Patient Instructions/Handouts: Chest Pain (DC) Discharge Disposition: HOME SELF-CARE
== END 2018-01-05 13:05 | disposition home or self-care (01) ==
LOC: EC 00:22 → 3OBS 03:18
PROVIDERS: ADMIT Hospitalist; ATTEND Hospitalist
DX: R07.89 Other chest pain (principal); R91.1 Solitary pulmonary nodule; R11.0 Nausea; I25.10 Atherosclerotic heart disease of native coronary artery without angina pectoris; R42 Dizziness and giddiness; K21.9 Gastro-esophageal reflux disease without esophagitis; E78.5 Hyperlipidemia, unspecified; I10 Essential (primary) hypertension; M19.90 Unspecified osteoarthritis, unspecified site; I25.82 Chronic total occlusion of coronary artery; I25.5 Ischemic cardiomyopathy; E03.9 Hypothyroidism, unspecified; I34.0 Nonrheumatic mitral (valve) insufficiency; I16.0 Hypertensive urgency; R59.0 Localized enlarged lymph nodes; Z95.5 Presence of coronary angioplasty implant and graft; I25.2 Old myocardial infarction; Z88.2 Allergy status to sulfonamides; Z79.82 Long term (current) use of aspirin; Z79.890 Hormone replacement therapy; Z79.02 Long term (current) use of antithrombotics/antiplatelets; Z79.899 Other long term (current) drug therapy; Z87.891 Personal history of nicotine dependence; Z80.9 Family history of malignant neoplasm, unspecified
CPT/HCPCS: 99285; 36415; 93005; 93306; 85379; 83880; 80061; 80053; 80048; 82150; 82550; 82553; 83690; 83735; 84484; 85025; 85610; 85730; 71046; 76882; 71260; G0378 ×2; Q9967

== ENCOUNTER → 2018-02-04 | Outpatient (CLI) | payer BC ==
[2018-02-04 17:33] LABS: HCT 40.6 % (34.0-46.0); HGB 13.6 gm/dL (11.4-16.0); MCH 30.4 pg (25.0-35.0); MCHC 33.6 g/dL (31.0-37.0); MCV 90.5 fL (80.0-100.0); Mean Platelet Volume 6.3; Platelet Count 215 k/uL (150-450); RBC 4.48 m/uL (3.80-5.40)
[2018-02-04 17:55] LABS: Calcium 9.4 mg/dL (8.4-10.2); Potassium 5.2 mmol/L (3.5-5.1)
== END | disposition home or self-care (01) ==
LOC: LABWHC1 16:38
PROVIDERS: ATTEND Internal Medicine Clinical Cardiac Electrophysiology
DX: I50.22 Chronic systolic (congestive) heart failure (principal); I25.5 Ischemic cardiomyopathy
CPT/HCPCS: 36415; 80048; 85027

== ENCOUNTER 2018-02-14 12:22 | Day surgery (SDC) | payer BC ==
[2018-02-08 09:19] VITALS: BMI 22.4
[~2018-02-14 12:22] MED LIST: ceFAZolin 1,000 MG in SODIUM CHLORIDE 0.9% IRRIGATIO 250 ML IRRIGATION ONE; ceFAZolin IN SWFI 2 GM/20 ML SYRINGE IVP ONE
[2018-02-14] MEDS: SODIUM CHLORIDE 0.9% 1,000 ML IV SCH (12:55)
[2018-02-14] MEDS ORDERED: PHENYLEPHRINE-0.9% NACL SYG 1 MG/10 ML SYRINGE ONE (14:13)
[2018-02-14] MEDS ORDERED: fentaNYL (PF) 50 MCG/ML 2 ML AMP ONE (14:13)
[2018-02-14] MEDS ORDERED: PROPOFOL 10 MG/ML 20 ML VIAL IV ONE (14:13)
[2018-02-14] MEDS ORDERED: MIDAZOLAM 2 MG/2 ML VIAL ONE (14:13)
[2018-02-14] MEDS ORDERED: LIDOCAINE 1% INJ 10MG/ML (20 ML MDV) ONE (14:13)
[2018-02-14] MEDS ORDERED: IOPAMIDOL-250 50ML BTL IV ONE (14:25)
[2018-02-14] MEDS ORDERED: LIDOCAINE 1% INJ 10MG/ML (20 ML MDV) SQ ONE (15:01)
[2018-02-14] MEDS ORDERED: ACETAMINOPHEN IV (For NPO) 1,000 MG in EMPTY BAG 1 BAG IVPB ONE (16:19)
[2018-02-14] MEDS ORDERED: ACETAMINOPHEN TAB 325 MG TAB PO PRN (16:19)
[2018-02-14] MEDS: LACTATED RINGERS 1,000 ML IV SCH (16:57)
[2018-02-14] MEDS: CARVEDILOL 12.5 MG TAB PO SCH (17:07)
--- NOTE | 2018-02-14 19:03 | CE ---
CARDIAC ELECTROPHYSIOLOGY REPORT This is a 63-year-old female with a history of severe ischemic cardiomyopathy with an ejection fraction of 30% to 35% who has not improved despite revascularization and medical treatment. She has chronic heart failure, class 2, with chronic LV systolic dysfunction for greater than 3 months. She is on guideline-directed medical treatment. Patient was referred for single-chamber ICD implantation for primary prevention of sudden cardiac . Patient was brought to the EP lab in a fasting state. Written informed consent was obtained prior to the procedure. The left shoulder area was prepped and draped as per protocol. Lidocaine 1% was used for local anesthesia. A 4 cm incision was made parallel to the deltopectoral groove, about 1.5 cm medial to it. The incision was carried down to the level of the pectoralis muscle. A subfascial pocket was made. Hemostasis was assured. The left axillary vein was accessed at a single point under fluoroscopy, and via an appropriately sized introducer sheath, a single-coil ICD lead was positioned in the right heart. This lead was positioned in the mid to high RV septum. R-waves were 21 mV. Pacing impedance 1556 ohms. Pacing threshold 1.1 V at 0.5 milliseconds, which later improved to 0.7 V at 0.5 milliseconds. Ten-volt test was negative. The lead was secured to the underlying pectoralis fascia using 2 nonabsorbable sutures. Pocket was irrigated with antibiotic solution. Lead was connected to the generator and then placed in the subfascial pocket. Generator was secured and the wound was closed in 3 layers and dressed per protocol. The single-chamber ICD generator was a [employer] MRI DF4 device, model number [id number] and serial number [id number]. The ICD lead was a Medtronic model number 6935M, 55 cm in length, and serial number [id number]. This was positioned in the RV septum. Patient tolerated the procedure well without any acute complications. DFT testing was withheld at this time and will be performed in about 3 months. MMODL / IJN: [id number] /
--- NOTE | 2018-02-14 19:33 | LTR ---
Dear Xochilt: I had the pleasure of seeing Willow in electrophysiology followup. As you know, Willow has severe ischemic cardiomyopathy that has not improved, despite revascularization and medical treatment for greater than 3 months. Her ejection fraction remains at 30%-35%, and therefore a single-chamber ICD was implanted today successfully without any acute complications. She will continue with the medications, then we will see her in the device clinic in about 5 days post discharge. Thank you for entrusting us with the care of your patient. Warm regards. Sincerely, OLIMPIA / PRABHU: [id number] /
[2018-02-14] MEDS ORDERED: ASPIRIN 81 MG PO SCH (21:00)
[2018-02-14] MEDS ORDERED: EZETIMIBE 10 MG TAB PO SCH (21:00)
[2018-02-14] MEDS ORDERED: ATORVASTATIN 10 MG TAB PO SCH (21:00)
[2018-02-14] MEDS: ceFAZolin IN SWFI 2 GM/20 ML SYRINGE IVP SCH (21:30)
[2018-02-14] MEDS: LISINOPRIL 20 MG TAB PO SCH (21:31)
[2018-02-14] MEDS: HYDROcodone/APAP 5-325MG 1 EACH TAB PO PRN (21:38)
[2018-02-15 00:26] VITALS: RESP 16
[2018-02-15] MEDS: LACTATED RINGERS 1,000 ML IV SCH (01:12)
[2018-02-15] MEDS: ceFAZolin IN SWFI 2 GM/20 ML SYRINGE IVP SCH ×3 (03:19→14:20)
[2018-02-15] MEDS: SODIUM CHLORIDE 0.9% 1,000 ML IV SCH ×2 (03:19→09:44)
[2018-02-15] MEDS: HYDROcodone/APAP 5-325MG 1 EACH TAB PO PRN ×3 (03:25→13:36)
[2018-02-15] MEDS ORDERED: LEVOTHYROXINE 75 MCG TAB PO SCH (06:30)
[2018-02-15] MEDS: CARVEDILOL 12.5 MG TAB PO SCH (06:38)
[2018-02-15] MEDS ORDERED: PANTOPRAZOLE 40 MG TABLET PO SCH (07:30)
[2018-02-15] MEDS: LISINOPRIL 20 MG TAB PO SCH (07:39)
--- NOTE | 2018-02-15 08:06 | XR ---
EXAMINATION TYPE: XR chest 2V DATE OF EXAM: 02/15/2018 COMPARISON: 01/04/2018 HISTORY: Lead placement tract TECHNIQUE: Frontal and lateral views of the chest are obtained. FINDINGS: There is a newly placed single ventricular lead cardiac device overlying the left hemithora x. Ventricular lead extends over the right heart border and is oriented anteriorly on the lateral david ge. There is no focal air space opacity, pleural effusion, or pneumothorax seen. The cardiac silhou ette size is within normal limits. The osseous structures are intact. Cholecystectomy clips are not ed within the right upper quadrant. IMPRESSION: No acute cardiopulmonary process.
[2018-02-15] MEDS ORDERED: SPIRONOLACTONE 25 MG TAB PO SCH (09:00)
[2018-02-15] MEDS ORDERED: CLOPIDOGREL 75 MG TAB PO SCH (09:00)
--- NOTE | 2018-02-15 10:40 | P.DS ---
Providers Attending physician: Hany Tyler Primary care physician: [facility] Course: Patient is doing well. She sitting up comfortably in the in bed. No chest discomfort no dizziness lightheadedness or palpitations Pulse rate in the 70s, blood pressure 146/66. His mercury afebrile 97.5F Breath sounds are clear Heart sounds S1 and S2 are normal Abdomen soft nontender Extremities are warm no edema Impression Severe ischemic adenopathy that has not improved despite revascularization and guideline telemetry medical treatment for greater than 3 months congestive heart failure class II CAD old CT ischemic cardio myopathy status post single chamber ICD ICD was interrogated and is functioning normally Chest x-ray report is reviewed Patient will be discharged home today on her home medications and will follow- up in the ICD clinic in 5 days and will follow with me as scheduled after completion of IV antibiotics Plan - Discharge Summary New Discharge Prescriptions: No Action Omeprazole [PriLOSEC] 20 mg PO AC-BRKFST Aspirin 81 mg PO HS Carvedilol 25 mg PO BID Atorvastatin [Lipitor] 10 mg PO HS Clopidogrel [Plavix] 75 mg PO DAILY Ezetimibe [Zetia] 10 mg PO HS Levothyroxine Sodium [Synthroid] 75 mcg PO DAILY Spironolactone [Aldactone] 50 mg PO DAILY #30 tab Lisinopril [Zestril] 20 mg PO BID Discharge Medication List Aspirin 81 mg PO HS 07/10/16 [History] Omeprazole [PriLOSEC] 20 mg PO AC-BRKFST 07/10/16 [History] Atorvastatin [Lipitor] 10 mg PO HS 01/04/18 [History] Carvedilol 25 mg PO BID 01/04/18 [History] Clopidogrel [Plavix] 75 mg PO DAILY 01/04/18 [History] Ezetimibe [Zetia] 10 mg PO HS 01/04/18 [History] Levothyroxine Sodium [Synthroid] 75 mcg PO DAILY 01/04/18 [History] Spironolactone [Aldactone] 50 mg PO DAILY #30 tab 01/05/18 [Rx] Lisinopril [Zestril] 20 mg PO BID 02/08/18 [History] Follow up Appointment(s)/Referral(s): [facility] [Provider Group] - 02/20/18 2:30 pm (Wednesday Device check only) Hany Tyler MD [STAFF PHYSICIAN] - As Needed (Dr. Tyler in 3 -4 months Spoke to office manager receptionist. Office will call with appointment time) Patient Instructions/Handouts: Implantable Cardioverter Defibrillator (DC) Discharge Disposition: HOME SELF-CARE
[2018-02-15 12:23] VITALS: TEMP 97.1
[2018-02-15 14:33] VITALS: BP 144/80; PULSE 72
== END 2018-02-15 16:28 | disposition home or self-care (01) ==
LOC: CATHEP 12:22 → 6SEL 16:00 → CATHEP 02-15 16:28
PROVIDERS: ATTEND Internal Medicine Clinical Cardiac Electrophysiology
DX: I25.5 Ischemic cardiomyopathy (principal); I11.0 Hypertensive heart disease with heart failure; I50.22 Chronic systolic (congestive) heart failure; I25.10 Atherosclerotic heart disease of native coronary artery without angina pectoris; Z00.6 Encounter for examination for normal comparison and control in clinical research program; E78.00 Pure hypercholesterolemia, unspecified; I25.2 Old myocardial infarction; K21.9 Gastro-esophageal reflux disease without esophagitis; Z72.0 Tobacco use; Z95.5 Presence of coronary angioplasty implant and graft; Z79.02 Long term (current) use of antithrombotics/antiplatelets; Z79.82 Long term (current) use of aspirin; Z79.890 Hormone replacement therapy; Z79.899 Other long term (current) drug therapy; Z88.2 Allergy status to sulfonamides
CPT/HCPCS: 33249; 71046; C1769 ×3; C1892; C1895; C1722; J2250; J2001; J3010; J0131; J2370; J2704; J0690 ×2; Q9966

== ENCOUNTER → 2018-05-07 | Outpatient (CLI) | payer BC ==
[2018-05-07 11:58] LABS: Basophils % (A) 1 %; Eosinophils # (A) 0.1 k/uL (0-0.7); Eosinophils % (A) 2 %; HCT 36.7 % (34.0-46.0); HGB 12.4 gm/dL (11.4-16.0); Lymphocytes # (A) 1.1 k/uL (1.0-4.8); Lymphocytes % (A) 34 %; MCH 31.6 pg (25.0-35.0); MCHC 33.7 g/dL (31.0-37.0); MCV 93.8 fL (80.0-100.0); Mean Platelet Volume 6.5; Monocytes # (A) 0.2 k/uL (0-1.0); Monocytes % (A) 6 %; Neutrophils # (A) 1.9 k/uL (1.3-7.7); Neutrophils % (A) 57 %; Platelet Count 215 k/uL (150-450); RBC 3.91 m/uL (3.80-5.40); RDW 13.2 % (11.5-15.5); WBC 3.4 k/uL (3.8-10.6)
[2018-05-07 12:53] LABS: Potassium 5.8 mmol/L (3.5-5.1)
== END | disposition home or self-care (01) ==
LOC: LABPAT 10:38
PROVIDERS: ATTEND Internal Medicine Clinical Cardiac Electrophysiology
DX: Z01.812 Encounter for preprocedural laboratory examination (principal); I25.5 Ischemic cardiomyopathy; I25.10 Atherosclerotic heart disease of native coronary artery without angina pectoris
CPT/HCPCS: 36415; 80051; 82565; 82947; 84520; 85025

== ENCOUNTER → 2018-05-16 | Day surgery (SDC) | payer BC ==
[2018-05-07 08:56] VITALS: BMI 22.4
[~2018-05-16] MED LIST changes: +IV FLUID CONTINUATION 450 ML IV ONE; +LACTATED RINGERS 1,000 ML IV SCH; +LIDOCAINE 1% INJ 10MG/ML (20 ML MDV) ONE; +MIDAZOLAM 2 MG/2 ML VIAL ONE; +PROPOFOL 10 MG/ML 20 ML VIAL IV ONE; +SODIUM CHLORIDE 0.9% 1,000 ML IV SCH; -ceFAZolin 1,000 MG in SODIUM CHLORIDE 0.9% IRRIGATIO 250 ML IRRIGATION ONE; -ceFAZolin IN SWFI 2 GM/20 ML SYRINGE IVP ONE
[2018-05-16 06:42] LABS: Calcium 8.9 mg/dL (8.4-10.2); Potassium 4.3 mmol/L (3.5-5.1)
--- NOTE | 2018-05-16 08:13 | P.PCN ---
Preoperative Diagnosis: Diagnosis Ischemic current myopathy Old SD Congestive heart failure systolic Procedure Defibrillation level testing of ICD, single-chamber ICD interrogation with reprogramming Patient is a Dexrex Geartronic ICD which was interrogated pacing impedance 908 3 ohms defibrillations impedance 62 ohms Pacing threshold 0.625 V at 0.4 ms R waves greater than 20 mV Shock and T wave protocol was used to induce ventricular fibrillation. This was adequately and appropriately detected at least sensitivity with 3 dropouts. Potential shock was unsuccessful in defibrillated the patient Subsequently a 20 J shock was successfully defibrillated the patient charge time 4.1 seconds, shocking impedance 55 ohms No post shock noise The device was then re-interrogated and then reprogrammed Sensitivity at 0.3 mV Long detection intervals First heart eversion at 20 J First defibrillation at 30 J Impression Ischemic cardio myopathy old SD CHF Status post single chamber ICD Abnormal LFTs on simvastatin High DFT, failure of 10 J in a regular polarity, 20 J successful Plan Yearly DFTs Disposition: same day
[2018-05-16 08:15] VITALS: RESP 16; TEMP 97.1
[2018-05-16 08:17] LABS: Albumin 3.9 g/dL (3.5-5.0); Bilirubin, Delta 0.3 mg/dL (0.0-0.2); Bilirubin,Unconjugated 0.1 mg/dL (0.0-1.1); Total Bilirubin 0.4 mg/dL (0.2-1.3); Total Protein 6.4 g/dL (6.3-8.2)
[2018-05-16 09:34] VITALS: BP 146/71; PULSE 63
== END | disposition home or self-care (01) ==
LOC: CATHEP 05:55
PROVIDERS: ATTEND Internal Medicine Clinical Cardiac Electrophysiology
DX: Z45.02 Encounter for adjustment and management of automatic implantable cardiac defibrillator (principal); I25.119 Atherosclerotic heart disease of native coronary artery with unspecified angina pectoris; I25.5 Ischemic cardiomyopathy; I11.0 Hypertensive heart disease with heart failure; I50.20 Unspecified systolic (congestive) heart failure; I25.2 Old myocardial infarction; E78.5 Hyperlipidemia, unspecified; E07.9 Disorder of thyroid, unspecified; K21.9 Gastro-esophageal reflux disease without esophagitis; Z95.5 Presence of coronary angioplasty implant and graft; Z79.02 Long term (current) use of antithrombotics/antiplatelets; Z79.82 Long term (current) use of aspirin; Z79.890 Hormone replacement therapy; Z79.899 Other long term (current) drug therapy; Z88.2 Allergy status to sulfonamides; Z87.891 Personal history of nicotine dependence
CPT/HCPCS: 93642; 80053; 82248; J2250; J2001; J2704

== ENCOUNTER → 2018-07-09 | Outpatient (CLI) | payer BC ==
[2018-07-10 06:01] LABS: Anion Gap 10.9 mmol/L (4.00-12.00); Calcium 9.1 mg/dL (8.7-10.3); Carbon Dioxide 26.1 mmol/L (21.6-31.8); Potassium 4.2 mmol/L (3.5-5.5)
== END | disposition home or self-care (01) ==
LOC: LABWHC1 15:43
PROVIDERS: ATTEND Nurse Practitioner Adult Health
DX: E87.5 Hyperkalemia (principal)
CPT/HCPCS: 36415; 80048

== ENCOUNTER → 2018-10-31 | Outpatient (CLI) | payer BC ==
--- NOTE | 2018-10-31 10:45 | US ---
EXAMINATION TYPE: US renal artery duplex complet DATE OF EXAM: 10/31/2018 COMPARISON: NONE CLINICAL HISTORY: I70.1 renal artery stenosis. MEASUREMENTS: RENAL SIZE: Rt Kidney: 10.1 x 4.5 x 4.1 cm Lt Kidney: 9.1 x 4.1 x 4.2 cm RESISTANCE INDEX Right: 0.59 Left: 0.61 RA/AO RATIO (< 3.5 ) Right: 2.4 Left: 1.8 RA VELOCITY ( < 180 cm/s) Right: 232 Left: 170 Renals and aorta unremarkable. Mildly elevated right renal artery, could be due to tortuosity. There is turbulent flow seen also. Good upstroke on segmentals at renal hilum. Low resistive waveforms note d throughout. IMPRESSION: No evidence for renal artery stenosis at this time.
== END | disposition home or self-care (01) ==
LOC: RADUSWWP 08:45
PROVIDERS: ATTEND Internal Medicine Clinical Cardiac Electrophysiology
DX: I70.1 Atherosclerosis of renal artery (principal)
CPT/HCPCS: 93975

== ENCOUNTER → 2018-11-20 | Outpatient (CLI) | payer BC ==
--- NOTE | 2018-11-21 12:16 | MM ---
Reason for exam: screening (asymptomatic). Last mammogram was performed 1 year and 4 months ago. History: Patient is postmenopausal. Family history of breast cancer in aunt. Benign US biopsy breast VAD RT of the right breast, May 10, 2016. Took estrogen for 10 years. Physical Findings: A clinical breast exam by your physician is recommended on an annual basis and results should be correlated with mammographic findings. MG 3D Screening Mammo W/Cad Bilateral CC and MLO view(s) were taken. Prior study comparison: August 01, 2017, bilateral MG screening mammo w CAD. May 10, 2016, right breast MG diagnostic mammo RT wo CAD. The breast tissue is heterogeneously dense. This may lower the sensitivity of mammography. Previous mammotome biopsy in the right breast. No significant changes when compared with prior studies. ASSESSMENT: Benign, BI-RAD 2 RECOMMENDATION: Routine screening mammogram of both breasts in 1 year.
== END ==
LOC: RADMAMWWP 13:23
PROVIDERS: ATTEND Family Medicine
DX: Z12.31 Encounter for screening mammogram for malignant neoplasm of breast (principal)
CPT/HCPCS: 77063; 77067

== ENCOUNTER → 2018-12-02 | Outpatient (CLI) | payer BC ==
--- NOTE | 2018-12-02 16:42 | US ---
EXAMINATION TYPE: US axilla RT DATE OF EXAM: 12/02/2018 COMPARISON: 01/04/2018 CLINICAL HISTORY: 63-year-old female R59.0 Localized enlarged lymph nodes, R91.1. TECHNIQUE: Multiple sonographic images of the right axilla were obtained. FINDINGS: Curing Pickling Packer notes: Prominent lymph node measuring 1.8 x 0.8 x 0.6 cm. prior 01/21 : 2.2 x 1.4 x 0.7 cm. IMPRESSION: Prominent lymph node in the right axilla, stable to slightly smaller currently measuring 1.8 x 0.8 cm (versus 2.2 x 1.4 cm, previously).
== END ==
LOC: RADUSWWP 12:41
PROVIDERS: ATTEND Family Medicine
DX: R59.0 Localized enlarged lymph nodes (principal)

== ENCOUNTER → 2018-12-10 | Outpatient (CLI) | payer BC ==
--- NOTE | 2018-12-10 11:57 | CT ---
EXAMINATION TYPE: CT chest w con DATE OF EXAM: 12/10/2018 COMPARISON: 01/04/2018 HISTORY: 63-year-old female follow up pulmonary nodule. TECHNIQUE: Contiguous axial scanning of the chest after the administration of 100 mL of Isovue 300. Coronal/sagittal reconstructions performed. CT DLP: 128.6mGycm. Automatic exposure control utilized for a dose reduction. FINDINGS: Left anterior chest wall AICD generator with right ventricular lead. Heart normal size without pericardial effusion. Aorta normal caliber with conventional arch vessel branching anatomy. No thoracic lymphadenopathy by CT size criteria. Evaluation of the lungs shows mild dependent atelectasis. Ground glass nodule peripheral left lower lobe measuring 6 mm versus 5 mm, previously not significant ly changed. No new pulmonary nodules. No consolidation or pleural effusion. Tiny hiatal hernia. Visualized upper abdomen shows cholecystectomy clips. Bones: Mild degenerative disc disease lower thoracic spine. IMPRESSION: Solitary 6 mm groundglass pulmonary nodule stable to minimally larger from 5 mm just under one year a go. Given the groundglass nature, recommend additional follow-up in 12 months.
== END ==
LOC: RADCTMAIN 09:31
PROVIDERS: ATTEND Family Medicine
DX: R91.1 Solitary pulmonary nodule (principal)
CPT/HCPCS: 71260; Q9967

== ENCOUNTER → 2019-01-03 | Outpatient (CLI) | payer BC ==
[2019-01-03 13:57] VITALS: BP 175/84; PULSE 65; RESP 18; TEMP 97.7; BMI 21.4
--- NOTE | 2019-01-03 14:28 | P.GSHP ---
History of Present Illness H&P Date: 01/03/19 Chief Complaint: swollen right axillary node Willow is a 63 -year-old white female who presents for evaluation of right axillary enlarged lymph node. This node was first noted approximately a year ago at which time it was stated to be 2.2 cm in size and on a recent ultrasound although it is slightly smaller at 1.8 cm in size it remains persistent. She additionally had had a CAT scan performed on 5719 the CAT scan was for follow- up of a pulmonary nodule and the pulmonary nodule was a 6 mm groundglass lesion which was felt to be followed up in 12 months time. The patient [place] [address] which was felt to be no significant changes BIR ADS 2. Bilateral mammogram in 1 year. The ultrasound of the axilla was done on 660 649. The patient is not complaining of any pain or masses in her breast or in her axilla. She has no history of any recent trauma or infection. Family history: mother: lung cancer father: prostate cancer Hormonal History: menarche: 10 , born at 22, breast fed: no menopause: Total hysterectomy of 44 secondary to endometriosis, no cancer took both of her ovaries as well control pills: 6 years hormones: 15 years Surgical history: 1. Total abdominal hysterectomy for endometriosis a 44 2. Cardiac stent following a heart attack 3. Cholecystectomy 4. Defibrillator placed Medical history: 1. Hypertension 2. High cholesterol 3.internal defibrillator Social History: smoke: none, stopped at 21 alcohol: none drugs: none - Constitutional Constitutional: Reports sweats - EENT Eyes: denies blurred vision, denies pain Ears: deny: decreased hearing, tinnitus Ears, nose, mouth and throat: Denies headache, Denies sore throat - Breasts Breasts: bilateral: as per HPI - Cardiovascular Comment: Myocardial infarction, patient has a defibrillator, cardiac stint - Respiratory Respiratory: Denies cough, Denies 7 - Gastrointestinal Gastrointestinal: Reports constipation, Denies abdominal pain, Denies diarrhea, Denies nausea, Denies vomiting - Genitourinary (Female) Genitourinary: Denies dysuria, Denies hematuria - Menstruation Menstruation: Reports post hysterectomy - Musculoskeletal Comment: arthritis in neck and lower back - Integumentary Integumentary: Denies pruritus, Denies rash - Neurological Neurological: Denies numbness, Denies weakness - Psychiatric Psychiatric: Reports anxiety, Denies depression - Endocrine Endocrine: Denies fatigue, Denies weight change - Hematologic/Lymphatic Comment: off them now, was taking secondary to LA takes baby aspirin - Allergic/Immunologic Allergic/Immunologic: Reports as per HPI Past Medical History Past Medical History: GERD/Reflux, Hyperlipidemia, Hypertension, Osteoarthritis (OA), Thyroid Disorder Additional Past Medical History / Comment(s): SEE DR. VASQUEZ H & P History of Any Multi-Drug Resistant Organisms: None Reported Past Surgical History: AICD, Section, Cholecystectomy, Heart Catheterization With Stent, Hysterectomy, Pacemaker, Tubal Ligation Additional Past Surgical History / Comment(s): attempted laparoscopic seven. in 2015 @[facility]- was removed later at [facility] 07/2016 heart cath with stent 09/10/17 Past Anesthesia/Blood Transfusion Reactions: Previous Problems w/ Anesthesia Additional Past Anesthesia/Blood Transfusion Reaction / Comment(s): some kind of complication w/attempted lap. seven, not sure if was anethesia or not-BP plummeted after start of procedure-was told could be respiratory although saw Pina who didn't think so, never had any anesthesia issues w/any other surg in past Date of Last Stent Placement:: september 10, 2017 Type of Cardiac Device: Permanent Pacemaker, AICD Device Placement Date:: 02/14/18 Past Psychological History: No Psychological Hx Reported Smoking Status: Former smoker Past Alcohol Use History: None Reported Additional Past Alcohol Use History / Comment(s): smoked for 5-6 yrs in teens & early 20's Past Drug Use History: None Reported - Past Family History Mother Family Medical History: Cancer Father Family Medical History: Cancer Medications and Allergies Home Medications Medication Instructions Recorded Confirmed Type Aspirin 81 mg PO HS 07/10/16 05/07/18 History Omeprazole [PriLOSEC] 20 mg PO AC-BRKFST 07/10/16 05/07/18 History Atorvastatin [Lipitor] 10 mg PO HS 01/04/18 05/07/18 History Carvedilol 25 mg PO BID 01/04/18 05/07/18 History Clopidogrel [Plavix] 75 mg PO DAILY 01/04/18 05/07/18 History Ezetimibe [Zetia] 10 mg PO HS 01/04/18 05/07/18 History Levothyroxine Sodium [Synthroid] 75 mcg PO DAILY 01/04/18 05/07/18 History Lisinopril [Zestril] 20 mg PO BID 02/08/18 05/07/18 History Spironolactone [Aldactone] 25 mg PO DAILY 05/07/18 05/16/18 History Allergies Allergy/AdvReac Type Severity Reaction Status Date / Time perflutren [From [facility]] Allergy Severe Verified 01/03/19 13:59 Back Pain Sulfa (Sulfonamide Allergy Rash/Hives Verified 01/03/19 13:59 Antibiotics) Surgical - Exam Vital Signs Temp Pulse Resp BP Pulse Ox 97.7 F 65 18 175/84 100 01/03/19 13:54 01/03/19 13:54 01/03/19 13:54 01/03/19 13:54 01/03/19 13:54 BMI 21.5 - General well developed, well nourished, no distress - Eyes normal ocular movement - ENT normal pinna, no hearing loss - Neck no masses, trachea midline - Respiratory normal respiratory effort, clear to auscultation - Cardiovascular Rhythm: regular Heart Sounds: normal: S1, S2 - Abdomen Abdomen: soft - Integumentary normal turgor - Neurologic no disoriented, no combative - Musculoskeletal normal gait - Psychiatric oriented to time, oriented to person, oriented to place, speech is normal, memory intact breast exam: right breast: Multi-positional exam no dominant masses or nodules of concern Right axilla: No adenopathy is appreciated despite the fact that adenopathy was seen radiographically Left breast: Multiple positional exam no dominant masses or nodules of concern Left axilla: No adenopathy of concern Results Review of ultrasound and CAT scan is performed with radiology, the lymph nodes seen in the right axilla are less than 1 cm in short axis and not considered to be suspicious as per radiology, she also has some shotty adenopathy noted in the left axilla which again is not suspicious Assessment and Plan Assessment: Impression: 1. Right axillary adenopathy noted on ultrasound 2. CAT scan showing both right and left axillary lymph nodes nonsuspicious 3. Fibrocystic breast changes 4. Family history of cancer 5. Cardiac disease with LA approximately 1 year ago 6. Defibrillator in place 7. High cholesterol 8. Hypertension 9. Hypothyroidism 10. GERD 11. Constipation/irritable bowel syndrome 12. anxiety Plan: 1. The findings radiographically of the lymph node in the right axilla does not appear to be pathologic, therefore close surveillance is felt to be adequate with a repeat ultrasound in 1 year 2. If patient notes any adenopathy or swelling of the catheter to see her sooner 3. Medical management of medical conditions Cc: Dr. Coker
== END ==
LOC: WWCWWP 13:47
PROVIDERS: ATTEND Surgery
DX: Z53.9 Procedure and treatment not carried out, unspecified reason (principal)

== ENCOUNTER → 2020-01-16 | Outpatient (CLI) | payer MEDICARE | END | disposition home or self-care (01) | LOC: LABWHC1 09:19 | PROVIDERS: ATTEND Internal Medicine Clinical Cardiac Electrophysiology | DX: Z11.59 Encounter for screening for other viral diseases (principal) ==

== ENCOUNTER 2020-01-19 06:30 | Day surgery (SDC) | payer MEDICARE ==
[2020-01-15 15:20] VITALS: BMI 21.9
[~2020-01-19 06:30] MED LIST changes: -IV FLUID CONTINUATION 450 ML IV ONE; -LACTATED RINGERS 1,000 ML IV SCH; -LIDOCAINE 1% INJ 10MG/ML (20 ML MDV) ONE; -MIDAZOLAM 2 MG/2 ML VIAL ONE; -PROPOFOL 10 MG/ML 20 ML VIAL IV ONE
[2020-01-19 06:58] VITALS: RESP 16; TEMP 97.9
[2020-01-19 07:08] LABS: Calcium 9.1 mg/dL (8.4-10.2); Potassium 4.1 mmol/L (3.5-5.1)
[2020-01-19] MEDS ORDERED: PROPOFOL 10 MG/ML 20 ML VIAL IV ONE (07:16)
--- NOTE | 2020-01-19 08:08 | P.PN ---
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
[2020-01-19 08:30] VITALS: BP 135/60; PULSE 60
--- NOTE | 2020-01-19 20:09 | PCN ---
PROCEDURE NOTE Willow Pedro has ischemic cardiomyopathy, single-chamber ICD and high DFT. She has hypertension and the medications were recently maximized for better blood pressure control. She has a history of high DFT and she is brought in for DFT testing under anesthesia. She has a Medtronic single-chamber ICD. ICD was interrogated first. The pacing impedance 988 ohms, defibrillation impedance 65 ohms, capture threshold 0.5 V at 0.4 milliseconds. R-waves greater than 20 mV. The defibrillation level testing was performed under anesthesia. Shock and T-wave protocol was used to induce ventricular fibrillation. This was adequately and appropriately detected at least sensitivity with 2 drop outs and successfully internally defibrillated with a 15 joule shock, which is successful. Shock impedance 65 ohms. No post shock noise. The device was then reprogrammed. First cardioversion at 15 joules and first defibrillation at 25 joules. VT enhancements were reprogrammed appropriate antitachycardia pacing cardioversion defibrillations were programmed. Sensitivity was done back to 0.3 mV. IMPRESSION: 1. Improvement in her defibrillation thresholds. 2. Single-chamber ICD, Medtronic, functioning normally. PLAN: Continue current cardiac medications. Patient is intolerant of spironolactone on account of hyperkalemia. She is on carvedilol and lisinopril as well as anti-platelet agents and statins. MMODL / IJN: [id number] /
== END 2020-01-19 08:25 | disposition home or self-care (01) ==
LOC: CATHEP 06:30
PROVIDERS: ATTEND Internal Medicine Clinical Cardiac Electrophysiology
DX: Z45.02 Encounter for adjustment and management of automatic implantable cardiac defibrillator (principal); I25.5 Ischemic cardiomyopathy; I11.0 Hypertensive heart disease with heart failure; I50.9 Heart failure, unspecified; E87.5 Hyperkalemia; E78.5 Hyperlipidemia, unspecified; Z72.0 Tobacco use; Z79.899 Other long term (current) drug therapy; Z95.5 Presence of coronary angioplasty implant and graft; I25.2 Old myocardial infarction; I25.10 Atherosclerotic heart disease of native coronary artery without angina pectoris; E78.00 Pure hypercholesterolemia, unspecified; Z88.2 Allergy status to sulfonamides; Z79.82 Long term (current) use of aspirin; Z79.890 Hormone replacement therapy
CPT/HCPCS: 93642; 80048; J2704

== ENCOUNTER → 2020-04-07 | Outpatient (CLI) | payer MEDICARE ==
[~2020-04-07] MED LIST changes: +REGADENOSON 0.4 MG/5 ML SYRINGE IV ONE; -SODIUM CHLORIDE 0.9% 1,000 ML IV SCH
--- NOTE | 2020-04-07 11:19 | P.STRESS ---
- Stress Test Note Stress Test Results/Findings: Exam Performed: NM stress lexiscan cardiolite Exam Date: 04/07/20 Reason for Exam: CAD Height: 5 ft Weight: 51.71 kg Protocol: LEXISCAN CARDIOLITE Stage: N/A Duration of Exercise: N/A Resting Heart Rate: 67 Resting Blood Pressure: 164/76 Maximum Achieved Heart Rate: 114 Maximum Achieved Blood Pressure: 176/103 85% PMHR: 131 100% PMHR: 154 METS: N/A Technologist Comment: Stress Test Results/Findings: At baseline EKG showed normal sinus rhythm with a heart rate of 66 bpm, Q waves in V1 through V3 consistent with prior anterior septal infarct, nonspecific 0.[address] depressions in 23 aVF. Patient recieved IV infusion of Lexiscan 0.4mg and at peak infusion EKG showed accentuation of S2 depressions in 23 and aVF with [address] depression Conclusions: 1. Nondiagnostic EKG response to Lexiscan infusion 2. Nuclear imaging to be reported separately.
--- NOTE | 2020-04-07 11:48 | NM ---
EXAMINATION TYPE: NM stress lexiscan cardiolite DATE OF EXAM: 04/07/2020 COMPARISON: NONE HISTORY: Precordial chest pain and abnormal EKG TECHNIQUE: After the intravenous administration of 9.86 mCi Tc 99m Sestamibi - Cardiolite resting SP ECT images acquired 65 minutes post injection. The patient received 0.4mg Lexiscan, 26.9 mCi Tc 99m Sestamibi - Stress images obtained [address] injection FINDINGS: Review of stress and rest SPECT images demonstrates fixed defect involving the anterior wall as well as the cardiac apex compatible with remote insult. No stress-induced ischemia is seen at this time. G ated analysis shows normal wall motion with an estimated left ventricular ejection fraction of 58 %. IMPRESSION: No scintigraphic evidence for reversible ischemia.
== END | disposition home or self-care (01) ==
LOC: RADNMMAIN 07:48
PROVIDERS: ATTEND Family Medicine
DX: I25.10 Atherosclerotic heart disease of native coronary artery without angina pectoris (principal)
CPT/HCPCS: 93017; 78452; A9500; J2785

== ENCOUNTER → 2020-05-05 | Outpatient (CLI) | payer MEDICARE ==
--- NOTE | 2020-05-05 12:09 | BD ---
EXAMINATION TYPE: Axial Bone Density DATE OF EXAM: 05/05/2020 COMPARISON: NONE CLINICAL HISTORY: Postmenopausal female Height: 59 Weight: 114.1 FRAX RISK QUESTIONS: Alcohol (3 or more units per day): no Family History (Parent hip fracture): no Glucocorticoids (More than 3mos): no (Ex: prednisone, prednisolone, methylprednisolone, dexamethasone, and hydrocortisone). History of Fracture in Adulthood: no Secondary Osteoporosis: 1. Type 1 Diabetes: no 2. Hyperthyroidism: no 3. Menopause before 45: no 4. Malnutrition: no 5. Chronic liver disease: no Rheumatoid Arthritis: no Current Tobacco Use: no RISK FACTORS HISTORY OF: Family History of Osteoporosis: no Active: yes Diet low in dairy products/other sources of calcium: yes Postmenopausal woman: age 45 Lost more than 2 inches in height since high school: no MEDICATIONS: heart meds, blood pressure meds, lipitor, Thyroid Medications: synthroid How Lon years Additional History: EXAM MEASUREMENTS: Bone mineral densitometry was performed using the [employer] System. Bone mineral density as measured about the Lumbar spine is: ----- L1-L4(G/cm2): 1.002 T Score Values are as follows: ----- L2: -1.8 ----- L3: -1.1 ----- L4: -1.9 ----- L1-L4: -1.5 Bone mineral density : baseline Bone mineral density about the R hip (g/cm2): 0.814 Bone mineral density about the L hip (g/cm2): 0.849 T Score values are as follows: -----R Neck: -1.6 -----L Neck: -1.4 -----R Total: -0.7 -----L Total: -0.6 Bone mineral density : baseline IMPRESSION: Osteopenia (T Score between -2.5 and -1). There is slightly increased risk of fracture and the patient may be considered for treatment. Re-Screen 2-5 years. NOTE: T-SCORE=SD OF THE YOUNG ADULT MEAN.
== END | disposition home or self-care (01) ==
LOC: RADBDWWP 09:44
PROVIDERS: ATTEND Family Medicine
DX: M85.80 Other specified disorders of bone density and structure, unspecified site (principal); Z78.0 Asymptomatic menopausal state
CPT/HCPCS: 77080

== ENCOUNTER → 2020-05-05 | Outpatient (CLI) | payer MEDICARE ==
--- NOTE | 2020-05-05 11:19 | MM ---
Reason for exam: additional evaluation requested from prior study. Last mammogram was performed 1 year and 5 months ago. History: Patient is postmenopausal. Family history of breast cancer in paternal aunt at age 70. Benign US biopsy breast VAD RT of the right breast, May 10, 2016. Took estrogen for 10 years beginning at age 44. Physical Findings: Nurse Summary: 0.5cm nodule in the right breast at 10 o'clock (nurse mj). MG 3D Diag Mammo W/Cad EVELYN Bilateral CC and MLO view(s) were taken. Spot compression MLO and XCCL view(s) were taken of the left breast. Prior study comparison: November 20, 2018, bilateral MG 3d screening mammo w/cad. August 01, 2017, bilateral MG screening mammo w CAD. The breast tissue is heterogeneously dense. This may lower the sensitivity of mammography. Benign appearing bilateral calcifications. Previous mammotome biopsy in the right breast. These results were verbally communicated with the patient and result sheet given to the patient on 05/05/20. ASSESSMENT: Benign, BI-RAD 2 RECOMMENDATION: Follow-up diagnostic mammogram of both breasts in 1 year.
--- NOTE | 2020-05-05 11:20 | USB ---
Reason for exam: additional evaluation requested from prior study. History: Patient is postmenopausal. Family history of breast cancer in paternal aunt at age 70. Benign US biopsy breast VAD RT of the right breast, May 10, 2016. Took estrogen for 10 years beginning at age 44. US Breast Axilla RT Technologist: Bianca Mcelroy Right axilla breast ultrasound demonstrates no cystic or solid lesion seen. These results were verbally communicated with the patient and result sheet given to the patient on 05/05/20. ASSESSMENT: Benign, BI-RAD 2 RECOMMENDATION: Follow-up diagnostic mammogram of both breasts in 1 year.
== END | disposition home or self-care (01) ==
LOC: RADUSWWP 09:33
PROVIDERS: ATTEND Surgery
DX: R92.8 Other abnormal and inconclusive findings on diagnostic imaging of breast (principal); R59.0 Localized enlarged lymph nodes
CPT/HCPCS: 77066; 76642; G0279; 77062

== ENCOUNTER → 2020-05-07 | Outpatient (CLI) | payer BC, MEDICARE ==
[2020-05-07 11:01] VITALS: BP 152/73; PULSE 69; RESP 12; TEMP 97.6
--- NOTE | 2020-05-07 11:10 | P.PN ---
Subjective Progress Note Date: 05/07/20 Principal diagnosis: fibrocystic breast changes, axillary adenopathy Willow is a 65 -year-old white female who presented for evaluation of right axillary enlarged lymph node on 01-03-19. This node was first noted approximately a year prior at which time it was stated to be 2.2 cm in size and on a repeat ultrasound noted it is was smaller at 1.8 cm in size but remained persistent. She additionally had had a CAT scan performed on 5718 the CAT scan was for follow-up of a pulmonary nodule and the pulmonary nodule was a 6 mm groundglass lesion which was felt to be followed up in 12 months time. This has not been repeated. The patient had a bilateral mammogram on this was felt to be benign BIRADS 2. She also had a ultrasound of the right axilla on which was also benign BIRADS 2 with no cystic or solid lesions seen. Recommendation was for follow-up diagnostic mammogram of both breasts in 1 year. She is not complaining of any new lumps masses or nodules in her breast. She is not complaining of any nipple discharge or skin changes. Family history: mother: lung cancer (heavy smoker) father: prostate cancer Hormonal History: menarche: 10 , born at 22, breast fed: no menopause: Total hysterectomy of 44 secondary to endometriosis, no cancer took both of her ovaries as well control pills: 6 years hormones: 15 years Surgical history: 1. Total abdominal hysterectomy for endometriosis a 44 2. Cardiac stent following a heart attack 3. Cholecystectomy 4. Defibrillator/pacemaker placed Medical history: 1. Hypertension 2. High cholesterol 3. internal defibrillator/ AR in the past for heart failure Social History: smoke: none, stopped at 21 alcohol: none drugs: none - Constitutional Constitutional: Reports sweats - EENT Eyes: denies blurred vision, denies pain Ears: deny: decreased hearing, tinnitus Ears, nose, mouth and throat: Denies headache, Denies sore throat - Breasts Breasts: bilateral: as per HPI - Cardiovascular Comment: Myocardial infarction, patient has a defibrillator, cardiac stint - Respiratory Respiratory: Denies cough, - Gastrointestinal Gastrointestinal: Reports constipation, Denies abdominal pain, Denies diarrhea, Denies nausea, Denies vomiting - Genitourinary (Female) Genitourinary: Denies dysuria, Denies hematuria - Menstruation Menstruation: Reports post hysterectomy - Musculoskeletal Comment: arthritis in neck and lower back - Integumentary Integumentary: Denies pruritus, Denies rash - Neurological Neurological: Denies numbness, Denies weakness - Psychiatric Psychiatric: Reports anxiety, Denies depression - Endocrine Endocrine: Denies fatigue, Denies weight change - Hematologic/Lymphatic Comment: off them now, was taking secondary to AR takes baby aspirin - Allergic/Immunologic Allergic/Immunologic: Reports as per HPI Objective - Vital Signs Vital signs: Intake & Output 05/06/20 05/07/20 05/07/20 18:59 06:59 18:59 Weight 51.71 kg - Exam BMI 15.9 - Constitutional General appearance: Present: average body habitus - EENT Eyes: Present: EOMI ENT: Present: hearing grossly normal - Neck Neck: Present: normal ROM - Respiratory Respiratory: bilateral: CTA - Cardiovascular Rhythm: regular Heart sounds: normal: S1, S2 - Gastrointestinal General gastrointestinal: Present: normal bowel sounds, soft - Integumentary Integumentary: Present: normal turgor - Musculoskeletal Musculoskeletal: Present: gait normal - Psychiatric Psychiatric: Present: A&O x's 3, appropriate affect, intact judgment & insight - Additional findings Additional findings: Breast exam: 36B insepction: grade 2 ptosis bilateral palpation: right breast: Multi-positional exam no dominant masses or nodules of concern, fibrocystic changes Right axilla: No adenopathy of concern Left breast: Multi-positional exam fibrocystic changes, no dominant masses or nodules of concern Left axilla: No adenopathy of concern Defibrillator in place left chest wall Assessment and Plan Assessment: Impression: 1. Hypertension 2. High cholesterol 3. internal defibrillator/ AR in the past for heart failure 4. Fibrocystic breast changes 5. No adenopathy of concern 6. Patient's computed tomography scan of the chest has not been repeated will have patient follow with primary care doctor regarding this Plan: 1. Bilateral mammogram in [address] of the chest as per primary care doctor 3. Medical management of medical conditions Cc: Dr. Sheela junior 20 minutes, > 50% of time in planning and counselling
== END | disposition home or self-care (01) ==
LOC: WWCWWP 10:36
PROVIDERS: ATTEND Surgery
DX: Z53.9 Procedure and treatment not carried out, unspecified reason (principal)

== ENCOUNTER → 2020-06-22 | Outpatient (CLI) | payer MEDICARE ==
--- NOTE | 2020-06-22 15:53 | CT ---
EXAMINATION TYPE: CT chest w con DATE OF EXAM: 06/22/2020 COMPARISON: Prior CT 12/10/2018 HISTORY: Lung nodule CT DLP: 150.9 mGycm Automated exposure control for dose reduction was used. CONTRAST: CT scan of the chest is performed with IV Contrast, patient injected with 100 mL of Isovue 300. FINDINGS: LUNGS: The lungs are grossly clear, there is no concerning parenchymal mass or nodule identified. Pr eviously identified abnormality in the left lower lobe is less conspicuous. There is no pleural effus ion or pneumothorax seen. The tracheobronchial tree is patent. MEDIASTINUM: There are no greater than 1 cm hilar or mediastinal lymph nodes. No pericardial effusi on is seen. AORTA: No additional significant abnormality is seen. OTHER: 1 patient is post cholecystectomy. Prominence of the biliary system likely due to postcholecy stectomy change. IMPRESSION: Benign findings.
== END | disposition home or self-care (01) ==
LOC: RADCTMAIN 11:34
PROVIDERS: ATTEND Family Medicine
DX: R91.1 Solitary pulmonary nodule (principal)
CPT/HCPCS: 82565; 84520; 71260; 36415; Q9967

== ENCOUNTER → 2021-05-10 | Outpatient (CLI) | payer MEDICARE ==
--- NOTE | 2021-05-10 10:42 | MM ---
Reason for exam: additional evaluation requested from prior study. Last mammogram was performed 1 year ago. History: Patient is postmenopausal. Family history of breast cancer in paternal aunt at age 70. Benign US biopsy breast VAD RT of the right breast, May 10, 2016. Took estrogen for 10 years beginning at age 44. Physical Findings: Nurse did not find any significant physical abnormalities on exam. MG 3D Diag Mammo W/Cad [facility] Bilateral CC and MLO view(s) were taken. Prior study comparison: May 05, 2020, bilateral MG 3d diag mammo w/cad [facility]. November 20, 2018, bilateral MG 3d screening mammo w/cad. The breast tissue is heterogeneously dense. This may lower the sensitivity of mammography. Previous mammotome biopsy in the right breast. There is chronic nodularity in the left breast. There is no discrete abnormality left axillary. These results were verbally communicated with the patient and result sheet given to the patient on 05/10/21. ASSESSMENT: Benign, BI-RAD 2 RECOMMENDATION: Routine screening mammogram of both breasts in 1 year.
== END | disposition home or self-care (01) ==
LOC: RADMAMWWP 09:34
PROVIDERS: ATTEND Surgery
DX: R92.8 Other abnormal and inconclusive findings on diagnostic imaging of breast (principal); Z80.3 Family history of malignant neoplasm of breast
CPT/HCPCS: 77066; G0279; 77062

== ENCOUNTER → 2021-05-30 | Outpatient (CLI) | payer MEDICARE ==
[2021-05-30 21:50] LABS: African American GFR (CKD) 72.7 (60.0-200.0); Albumin 4.6 g/dL (3.8-4.9); Albumin/Globulin Ratio 2.28 (1.60-3.17); BUN/Creat Ratio 16.47 Ratio (12.00-20.00); Blood Urea Nitrogen 15.5 mg/dL (9.0-27.0); Calcium 9.5 mg/dL (8.7-10.3); Carbon Dioxide 26.7 mmol/L (21.6-31.8); Magnesium 2.3 mg/dL (1.5-2.4); Non-African American GFR(CKD) 62.7 (60.0-200.0); Potassium 4.2 mmol/L (3.5-5.5); Total Bilirubin 0.2 mg/dL (0.30-1.20); Total Protein 6.7 g/dL (6.2-8.2)
== END | disposition home or self-care (01) ==
LOC: LABWHC1 10:48
PROVIDERS: ATTEND Nurse Practitioner Adult Health
DX: I10 Essential (primary) hypertension (principal); R53.83 Other fatigue
CPT/HCPCS: 36415; 80053; 82306; 83735; 84439; 84443

== ENCOUNTER → 2022-04-13 | Outpatient (CLI) | payer MEDICARE ==
--- NOTE | 2022-04-13 15:08 | US ---
EXAMINATION TYPE: US carotid duplex BILAT DATE OF EXAM: 04/13/2022 COMPARISON: NONE CLINICAL HISTORY: 67-year-old female I25.10 Atherosclerotic heart disease of huslia cor. Hx heart verena nt. Patient states throbbing in head. TECHNIQUE: Carotid duplex ultrasound examination. Indirect Doppler criteria was utilized. FINDINGS: EXAM MEASUREMENTS: RIGHT: Peak Systolic Velocity (PSV) cm/sec ----- Right CCA: 54.5 ----- Right ICA: 52.4 ----- Right ECA: 49.5 ICA/CCA ratio: 1.0 RIGHT: End Diastole cm/sec ----- Right CCA: 11.0 ----- Right ICA: 16.8 ----- Right ECA: 0.0 LEFT: Peak Systolic Velocity (PSV) cm/sec ----- Left CCA: 61.6 ----- Left ICA: 69.4 ----- Left ECA: 61.6 ICA/CCA ratio: 1.1 LEFT: End Diastole cm/sec ----- Left CCA: 17.1 ----- Left ICA: 25.8 ----- Left ECA: 0.0 VERTEBRALS (direction of flow): Right Vertebral: Antegrade Left Vertebral: Antegrade Rhythm: Normal BUSINESS OBJECTS NOTES: No plaque or significant stenosis. No elevated velocities. IMPRESSION: No hemodynamically significant internal carotid artery stenosis on either side. Criteria for Assigning % of Stenosis / Diameter reduction (Estimation based on the indirect measurements of the internal carotid artery velocities (ICA PSV). 1. Normal (no stenosis)=ICA PSV < 125 cm/s: ratio < 2.0: ICA EDV<40 cm/s. 2. Less than 50% stenosis=ICA PSV < 125 cm/s: ratio < 2.0: ICA EDV<40 cm/s. 3. 50 to 69% stenosis=ICA PSV of 125 to 230 cm/s: ration 2.0 ? 4.0: ICA EDV 40-100 cm/s. 4. Greater than 70% stenosis to near occlusion= ICA PSV > 230 cm/s: ratio > 4.0: ICA EDV > 100 cm/s. 5. Near occlusion= ICA PSV velocities may be low or undetectable: variable ratio and ICA EDV. 6. Total occlusion=unable to detect flow.
== END | disposition home or self-care (01) ==
LOC: RADUSWWP 10:42
PROVIDERS: ATTEND Family Medicine
DX: I25.10 Atherosclerotic heart disease of native coronary artery without angina pectoris (principal)
CPT/HCPCS: 93880

== ENCOUNTER → 2022-05-15 | Outpatient (CLI) | payer MEDICARE ==
--- NOTE | 2022-05-15 13:58 | BD ---
EXAMINATION TYPE: Axial Bone Density DATE OF EXAM: 05/15/2022 COMPARISON: FIRST DEXA AT [facility] CLINICAL HISTORY: 67 years year old Female. ICD-10 CODE: M85.80 DISORDER OF BONE DENSITY Height: 58IN Weight: 118LB FRAX RISK QUESTIONS: Secondary Osteoporosis: 3. Menopause before 45: TOTAL HYSTERECTOMY AT 44 RISK FACTORS HISTORY OF: Active: YES Postmenopausal woman: YES Take estrogen and/or progesterone medications: HRT AFTER 45 How lon YEARS MEDICATIONS: Thyroid Medications: Which medication: YES LEVOTHYROXINE How Lon YEARS Additional Medications: BP MEDS, CHOLESTEROL MED, CARDIAC MEDS, GI MED Additional History: EXAM MEASUREMENTS: Bone mineral densitometry was performed using the [employer] System. Bone mineral density as measured about the Lumbar spine is: ----- L1-L4(G/cm2): 1.026 T Score Values are as follows: ----- L1: -1.1 ----- L2: -1.8 ----- L3: -0.8 ----- L4: -1.6 ----- L1-L4: -1.3 FIRST DEXA AT [facility] Bone mineral density about the R hip (g/cm2): 0.873 Bone mineral density about the L hip (g/cm2): 0.906 T Score values are as follows: -----R Neck: -2.0 -----L Neck: -1.6 -----R Total: -1.1 -----L Total: -0.8 FRAX%s: The graph provided illustrates a 11.9% chance for a major osteoporotic fx and a 2.2% chance f or the hips probability for fx in 10 years time. IMPRESSION: Osteopenia (T Score between -2.5 and -1). There is slightly increased risk of fracture and the patient may be considered for treatment. Re-Screen 2-5 years. NOTE: T-SCORE=SD OF THE YOUNG ADULT MEAN.
--- NOTE | 2022-05-16 15:23 | MM ---
Reason for Exam: Screening (asymptomatic). Last screening mammogram was performed 12 month(s) ago. Patient History: Menarche at age 9. First Full-Term at age 22. Left ovary removed at age 44. Right ovary removed at age 44. Hysterectomy at age 44. Postmenopausal. Estrogen for 10 years from age 44 until age 54. 05/10/2016, Benign Core Biopsy on the right side. Paternal aunt had breast cancer, age 70. Risk Values: Yanci 5 year model risk: 2.0%. NCI Lifetime model risk: 6.4%. Prior Study Comparison: 11/20/2018 Bilateral Screening Mammogram, [facility]. 05/05/2020 Bilateral Diagnostic Mammogram, [facility]. 05/10/2021 Bilateral Diagnostic Mammogram, [facility]. Tissue Density: The breast tissue is heterogeneously dense. This may lower the sensitivity of mammography. Findings: Analyzed By CAD. There is no suspicious group of microcalcifications or new suspicious mass in either breast. Overall Assessment: Benign, BI-RAD 2 Management: Screening Mammogram of both breasts in 1 year. A clinical breast exam by your physician is recommended on an annual basis and results should be correlated with mammographic findings. Electronically signed and approved by: Neal Taylor M.D. Radiologis
== END | disposition home or self-care (01) ==
LOC: RADMAMWWP 12:37
PROVIDERS: ATTEND Family Medicine
DX: Z12.31 Encounter for screening mammogram for malignant neoplasm of breast (principal); M85.80 Other specified disorders of bone density and structure, unspecified site
CPT/HCPCS: 77063; 77067; 77080

== ENCOUNTER → 2022-05-30 | Outpatient (CLI) | payer MEDICARE ==
[2022-05-30 14:29] LABS: HGB 13.1 g/dL (12.0-15.0); MCH 33.2 pg (27.0-32.0); MCHC 35.4 g/dL (32.0-37.0); MCV 93.7 fL (80.0-97.0); Mean Platelet Volume 9.9 fL (9.5-12.2); NRBC Per 100 WBC 0 /100 WBCS (0.0-0.0); Platelet Count 213 X 10*3/uL (140-440); RBC 3.95 X 10*6/uL (4.10-5.20); RDW 12.3 % (11.5-14.5); WBC 4.18 X 10*3/uL (4.50-10.00)
[2022-05-30 18:37] LABS: African American GFR (CKD) 71.4 (60.0-200.0); Anion Gap 12.9 mmol/L (10.00-18.00); Blood Urea Nitrogen 12.5 mg/dL (9.0-27.0); Carbon Dioxide 24.9 mmol/L (20.0-27.5); Non-African American GFR(CKD) 61.6 (60.0-200.0); Potassium 4.3 mmol/L (3.5-5.5)
== END | disposition home or self-care (01) ==
LOC: LABPAT 09:29
PROVIDERS: ATTEND Internal Medicine Clinical Cardiac Electrophysiology
DX: Z01.812 Encounter for preprocedural laboratory examination (principal); I34.0 Nonrheumatic mitral (valve) insufficiency; I25.5 Ischemic cardiomyopathy
CPT/HCPCS: 80051; 82565; 84520; 85027

== ENCOUNTER 2022-06-08 06:05 | Day surgery (SDC) | payer MEDICARE ==
[2022-06-05 15:15] VITALS: BMI 22.2
[~2022-06-08 06:05] MED LIST changes: +LACTATED RINGERS 1,000 ML IV SCH; -REGADENOSON 0.4 MG/5 ML SYRINGE IV ONE; +SODIUM CHLORIDE 0.9% 1,000 ML IV SCH; +ceFAZolin 1 GM in SODIUM CHLORIDE 0.9% IRRIG BTL 250 ML IRRIGATION PRN
[2022-06-08 06:36] VITALS: RESP 18; TEMP 98.1
[2022-06-08] MEDS ORDERED: PROPOFOL 10 MG/ML 20 ML VIAL IV ONE (07:18)
[2022-06-08] MEDS ORDERED: MIDAZOLAM 2 MG/2 ML VIAL ONE (07:18)
[2022-06-08] MEDS ORDERED: fentaNYL (PF) 50 MCG/ML 2 ML AMP ONE (07:18)
[2022-06-08] MEDS ORDERED: LIDOCAINE 1% INJ 10MG/ML (10 ML MDV) SQ ONE ×2 (08:05→08:20)
[2022-06-08] MEDS ORDERED: VANCOMYCIN 1,000 MG in SODIUM CHLORIDE 0.9% 250 ML IVPB ONE (08:15)
[2022-06-08] MEDS ORDERED: ACETAMINOPHEN TAB 325 MG TAB PO PRN (09:05)
--- NOTE | 2022-06-08 09:51 | P.EPPROC ---
- EP Procedure Note Electrophysiology Procedure Note: Diagnosis ICD device migration laterally into the axilla, symptomatic No evidence for infection of preocclusion Procedures performed #1 pocket revision #2 ICD generator relocation #3 defibrillation testing, DFT at 15 J, stable Details Patient was brought to the EP lab in a fasting state. Written informed consent was obtained prior to the procedure. IV antibiotics including IV vancomycin administered An incision was made directly over the previous surgical site after local anesthesia The incision was carried out level of the generator The generator was explanted The pocket looks very clean. The device had been sutured to secure it but nevertheless on account of the pendulum-like rotation entrance to towards the axilla Partial capsulectomy was performed The pocket was enlarged medially as well as quarterly to allow for relocation of the device more medially and coronary to avoid the device from slipping returning towards the axilla The suture was placed to secure the device, in the manner that would prevent lateral migration or lateral pendulum-like movements The wound was then closed and dressed per protocol Defibrillation level testing Shock and T wave protocol was used to induce ventricular fibrillation this was adequately and appropriately detected with 2 dropouts and successfully internally defibrillated with a 15 J shock Charge time 2.2 seconds Shocking impedance 57 ohms No post shock noise Device was interrogated pacing impedance in the RV lead was 1121 ohms Defibrillation impedance 72 ohms Capture threshold 0.5 V at 0.4 ms R waves 1120 mV The device was then reprogrammed to 2 zones of therapy with VT zone at 176 beats a minute and VF zone at 214 beats a minute Appropriate antitachycardia pacing cardioversion and defibrillation programmed Sensitivity abdominal We have let on another patient of the procedure well without any acute complications Plan 1 more dose of antibiotics in about 4 hours and discharge home today Continue cardiac medications
[2022-06-08 11:39] VITALS: BP 148/70; PULSE 64
== END 2022-06-08 12:10 | disposition home or self-care (01) ==
LOC: CATHEP 06:05
PROVIDERS: ATTEND Internal Medicine Clinical Cardiac Electrophysiology
DX: T82.897A Other specified complication of cardiac prosthetic devices, implants and grafts, initial encounter (principal); I25.5 Ischemic cardiomyopathy
CPT/HCPCS: 93641; 33223; J2250; J3370; J0690; J3010; J2001; J2704

== ENCOUNTER → 2022-08-15 | Outpatient (CLI) | payer MEDICARE ==
--- NOTE | 2022-08-15 13:03 | XR ---
EXAMINATION TYPE: XR knee 4V RT DATE OF EXAM: 08/15/2022 COMPARISON: NONE HISTORY: 67-year-old female M1 7.11, unilateral primary osteoarthritis. TECHNIQUE: 4 views FINDINGS: There are AP slight joint space narrowing in the medial and patellofemoral compartments. No significant degenerative spurring is seen. Extensor mechanism is intact. No joint effusion. No acute fracture, subluxation, or dislocation. IMPRESSION: Consider weightbearing view to better assess any potential joint space narrowing in the medial and la teral compartments. There may be minimal joint space narrowing in the patellofemoral compartment. No significant degenerative spurring. No acute osseous abnormality seen.
== END | disposition home or self-care (01) ==
LOC: RADXRMAIN 10:33
PROVIDERS: ATTEND Family Medicine
DX: M17.11 Unilateral primary osteoarthritis, right knee (principal)

== ENCOUNTER → 2024-04-09 | Outpatient (CLI) | payer MEDICARE ==
--- NOTE | 2024-04-09 10:09 | USB ---
Reason for Exam: Clinical finding. Patient History: Menarche at age 9. First Full-Term at age 22. Left ovary removed at age 44. Right ovary removed at age 44. Hysterectomy at age 44. Postmenopausal. Estrogen for 10 years from age 44 until age 54. 05/10/2016, Benign Core Biopsy on the right side. Paternal aunt had breast cancer, age 70. Risk Values: Yanci 5 year model risk: 2.0%. NCI Lifetime model risk: 5.9%. Technique: Method: Whole Breast Handheld. Prior Study Comparison: 05/10/2021 Bilateral Diagnostic Mammogram, [facility]. 05/15/2022 Bilateral MG 3D screening mammo w/cad, [facility]. 05/17/2023 Bilateral MG 3D screening mammo w/cad, [facility]. Findings: The whole breast of both breasts, the axilla of both breasts and the retroareolar of both breasts were scanned. Technique utilized:US breast complete BILAT Image; Ultrasound imaging of: All 4 quadrants, the retroareolar region and axilla. No evidence for organizing fluid collection or solid suspicious mass. Scattered cysts in the bilateral breasts some of which may have thin septation, example 9 o'clock 4 cm from nipple measuring 3 mm. There is at least one dilated duct right breast 10:00 4 cm from the nipple. Overall Assessment: Benign, BI-RAD 2 Management: Screening Mammogram of both breasts in 1 month. A clinical breast exam by your physician is recommended on an annual basis and results should be correlated with mammographic findings. This exam should not preclude additional follow-up of suspicious palpable abnormalities. Results were given to the patient verbally at the time of exam. Electronically signed and approved by: Luis Alfredo Leblanc DO
--- NOTE | 2024-04-09 11:39 | XR ---
EXAMINATION TYPE: XR cervical spine comp DATE OF EXAM: 04/09/2024 10:50 AM CLINICAL INDICATION: Female, 69 years old with history of M54.2 CERVICALGIA; [facility] COMPARISON: None TECHNIQUE: The cervical spine was imaged in frontal, lateral, odontoid and bilateral oblique. FINDINGS: The osseous structures show normal alignment without evidence of an acute fracture. There are osteoph ytes noted throughout the cervical spine on the anterior and lateral aspects of the vertebral bodies. The intervertebral disk spaces are narrowed at multiple levels. Pedicles are intact. Soft tissues a re within normal limits. The odontoid appears intact. IMPRESSION: 1. No fracture or dislocation. 2. Mild degenerative disc disease changes of the cervical spine.
== END | disposition home or self-care (01) ==
LOC: RADUSWWP 09:12
PROVIDERS: ATTEND Family Medicine
DX: M50.30 Other cervical disc degeneration, unspecified cervical region (principal); N60.01 Solitary cyst of right breast; N60.02 Solitary cyst of left breast; Z78.0 Asymptomatic menopausal state; Z80.3 Family history of malignant neoplasm of breast; Z90.722 Acquired absence of ovaries, bilateral
CPT/HCPCS: 72050

== ENCOUNTER → 2024-05-07 | Outpatient (CLI) | payer MEDICARE ==
--- NOTE | 2024-05-07 09:14 | XR ---
EXAMINATION TYPE: XR Hip Complete RT DATE OF EXAM: 05/07/2024 CLINICAL HISTORY: pain TECHNIQUE: AP and frogleg views of the right hip are obtained. COMPARISON: None. FINDINGS: There is no acute fracture/dislocation evident. The joint space appears within normal li mits. The overlying soft tissue appears unremarkable. IMPRESSION: 1. There is no acute fracture or dislocation. ICD 10 NO FRACTURE, INITIAL EVALUATION [facility], , 05/07/2024 9:12 AM
--- NOTE | 2024-05-07 09:15 | XR ---
EXAMINATION TYPE: XR lumbar spine 2 or 3V DATE OF EXAM: 05/07/2024 CLINICAL HISTORY: pain TECHNIQUE: Three views of the lumbar spine are submitted. COMPARISON: None. FINDINGS: There are 5 lumbar type vertebral bodies identified. The lumbar spine shows satisfactory alignment w ithout evidence of acute fracture or dislocation. Vertebral body heights are within normal limits. Mild degenerative disc space narrowing and facet joint arthropathy. Mild ventral spondylosis. The ov erlying soft tissue appears unremarkable. IMPRESSION: No acute fracture or dislocation is seen in the lumbar spine. ICD 10 NO FRACTURE, INITIAL EVALUATION [facility], , 05/07/2024 9:13 AM
== END | disposition home or self-care (01) ==
LOC: RADXRMAIN 08:50
PROVIDERS: ATTEND Family Medicine
DX: M53.3 Sacrococcygeal disorders, not elsewhere classified
CPT/HCPCS: 72100; 73502

== ENCOUNTER → 2024-05-19 | Outpatient (CLI) | payer MEDICARE ==
--- NOTE | 2024-05-20 10:36 | MM ---
Reason for Exam: Screening (asymptomatic). Last screening mammogram was performed 12 month(s) ago. Patient History: Menarche at age 9. First Full-Term at age 22. Left ovary removed at age 44. Right ovary removed at age 44. Hysterectomy at age 44. Postmenopausal. Estrogen for 10 years from age 44 until age 54. 05/10/2016, Benign Core Biopsy on the right side. Paternal aunt had breast cancer, age 70. Risk Values: Yanci 5 year model risk: 2.0%. NCI Lifetime model risk: 5.9%. Prior Study Comparison: 05/10/2021 Bilateral Diagnostic Mammogram, [facility]. 05/15/2022 Bilateral MG 3D screening mammo w/cad, [facility]. 05/17/2023 Bilateral MG 3D screening mammo w/cad, [facility]. Tissue Density: The breasts are heterogeneously dense, which may obscure small masses. Findings: Analyzed By CAD. Right breast biopsy clip. Right breast: There is no suspicious group of microcalcifications or new suspicious mass. Left breast: There is no suspicious group of microcalcifications or new suspicious mass. Pacemaker partially obscures left breast and 3-D imaging. Overall Assessment: Benign, BI-RAD 2 Management: Screening Mammogram of both breasts in [address] [facility] will attempt to contact patient to return for supplemental views and ultrasound if indicated. Patient should continue monthly self-breast exams. A clinical breast exam by your physician is recommended on an annual basis. This exam should not preclude additional follow-up of suspicious palpable abnormalities. Note on Yanci scores and lifetime risk: 1. A Yanci score greater than 3% is considered moderate risk. If this is the case, consider specialist referral to assess eligibility for a risk reducing agent. 2. If overall lifetime risk for the development of breast cancer is 20% or higher, the patient may qualify for future screening with alternating mammogram and breast MRI. [facility], , 05/20/2024 10:24 AM. Electronically signed and approved by: Luis Alfredo Leblanc DO
--- NOTE | 2024-05-21 22:43 | BD ---
EXAMINATION TYPE: Axial Bone Density DATE OF EXAM: 05/19/2024 CLINICAL HISTORY: 69 years old Female. ICD-10 CODE: M85.80 Disorder of bone Height: 59" Weight: 121lbs FRAX RISK QUESTIONS: Alcohol (3 or more units per day): No Family History (Parent hip fracture): No Glucocorticoids (More than 3mos): No (Ex: prednisone, prednisolone, methylprednisolone, dexamethasone, and hydrocortisone). History of Fracture in Adulthood: ~ Secondary Osteoporosis: 1. Type 1 Diabetes: No 2. Hyperthyroidism: No 3. Menopause before 45: No 4. Malnutrition: No 5. Chronic liver disease: No Rheumatoid Arthritis: No Current Tobacco Use: No RISK FACTORS HISTORY OF: Hip Fracture (Right/Left): No Spine Fracture: No History of Wrist Fracture: No Surgery to Spine/Hip(right/left)/Wrist (right/left): No MEDICATIONS: Thyroid Medications: Yes Which medication: Levothyroxine How Long: Aprpox. 30 years Osteoporosis Medications: No EXAM MEASUREMENTS: Bone mineral densitometry was performed using the [employer] System. Bone mineral density as measured about the Lumbar spine is: ----- L1-L4(G/cm2): 1.020 T Score Values are as follows: ----- L1: -1.0 ----- L2: -1.5 ----- L3: -1.5 ----- L4: -1.4 ----- L1-L4: -1.3 Z Score Values are as follows: ----- L1: 1.0 ----- L2: 0.5 ----- L3: 0.5 ----- L4: 0.6 ----- L1-L4: 0.7 Bone mineral density has: decreased -0.6% since study of: 05/15/2022 Bone mineral density about the R hip (g/cm2): 0.871 Bone mineral density about the L hip (g/cm2): 0.917 T Score values are as follows: -----R Neck: -2.4 -----L Neck: -1.7 -----R Total: -1.1 -----L Total: -0.7 Z Score values are as follows: -----R Neck: -0.5 -----L Neck: 0.2 -----R Total: 0.6 -----L Total: 1.0 Bone mineral density has: increased 0.4% since study of: 05/15/2022 FRAX%s: The graph provided illustrates a 14.4% chance for a major osteoporotic fx and a 3.6% chance f or the hips probability for fx in 10 years time. IMPRESSION: Osteopenia (T Score between -2.5 and -1). There is slightly increased risk of fracture and the patient may be considered for treatment. Re-Screen 2-5 years. NOTE: T-SCORE=SD OF THE YOUNG ADULT MEAN. [facility], , 05/21/2024 10:41 PM
== END | disposition home or self-care (01) ==
LOC: RADMAMWWP 12:55
PROVIDERS: ATTEND Family Medicine
CPT/HCPCS: 77063; 77067; 77080

== ENCOUNTER → 2025-01-19 | Outpatient (CLI) | payer MEDICARE ==
[2025-01-19 16:33] LABS: Chol/HDL Ratio 3.52 Ratio
[2025-01-19 16:34] LABS: LDL Cholesterol,Calculated 90.7 mg/dL (0.0-131.0)
== END | disposition home or self-care (01) ==
LOC: LABWHC1 08:07
PROVIDERS: ATTEND Internal Medicine Clinical Cardiac Electrophysiology
DX: E78.5 Hyperlipidemia, unspecified (principal)
CPT/HCPCS: 36415; 80061